=== PATIENT | female | born 1990 | race Caucasian/White ===

== ENCOUNTER 2024-07-08 11:47 | Emergency (ER) | payer SELFPAY ==
--- OUTSIDE RECORDS SUMMARY | 2024-07-08 11:51 | XMS REPORT | Continuity of Care Document ---
Author Name Unknown Address [address] [place] [address] [facility] Address 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 Phone Pcp, Patient Does Not Have A Primary Care Physic vitaliy KEYANNA HEATON Attending Clinician Unavailable KEYANNA HEATON Attending Clinician Unavailable Keyanna Heaton MD Attending Clinician [phone] KATHRYN OCASIO Attending Clinician Unavailable KATHRYN OCASIO Attending Clinician Unavailable Kathryn Ocasio DO Attending Clinician [phone] GALDINO FRANZ Attending Clinician Unavailable GALDINO FRANZ Attending Clinician Unavailable JOHNNY HAYNES Attending Clinician Unav ailable JOHNNY HAYNES Attending Clinician Unav ailable Johnny Haynes MD Attending Clinician + Sangeeta العلي MD Attending Clinician SANGEETA العلي Attending Clinician Gaby vailable Galdino Estevez Attending Clinician [phone] Melvin SANTOS, Anish Attending Clinician [phone] AIXA SAWYER Attending Clinician Unavailable AIXA SAWYER Attending Clinician Unavailable Aixa Sauceda Attending Clinician [phone] KATHRYN OCASIO Admitting Clinician Unavailable JOHNNY HAYNES Admitting Clinician Unav ailable SANGEETA العلي Admitting Clinician Gaby KEYANNA Gonzales Admitting Clinician Unavailable Payers Payer Name Policy Type Policy Number Effective Date Expirati on Date Source [id number]24 00:00:00 [facility] [id number] 2024 00:00:00 2024 00:00:00 Allergies, Adverse Reactions, Alerts Allergy Name Allergy Type Status Severity Reaction(s) Onset Date Inactive Date Treating Clinician Comments Source SHELLFIS H DERIVED DRUG INGREDI Active Anaphylaxis 04-07 00:00: 00 [facility] Shellfis h Derived Propensi ty to adverse reaction s Active Anaphylaxis 04-07 00:00: 00 [facility] IODINE DRUG INGREDI Active Anaphylaxis 2023-03 00:00: 00 [facility] Iodine Propensi ty to adverse reaction s Active Anaphylaxis 2023-03 00:00: 00 [facility] NO KNOWN ALLERGIE S Drug Class Active [facility] Social History Social Habit Start Date Stop Date Quantity Comments Source [facility] Sex assigned at 1990 00:00:00 1990 00:00:00 [facility] Smoking Status Start Date Stop Date Source Tobacco smoking consumption unknown [facility] Medications Ordered Medication Name Filled Medication Name Start Date Stop Date Current Medication? Ordering Clinician Indication Dosage Frequency Signature (SIG) Comments Components Source traMADoL (ULTRAM) tablet 50 mg 07-07 11:15: 00 07-07 10:31 :00 No 50mg 50 mg, Oral, ONCE NOW, 1 dose, On Fri07/07/24 at 0615, Routine [facility] naproxen sodium 550 mg tablet 07-07 00:00: 00 Yes [id number] 550mg Take 1 tablet by mouth in the morning and 1 tablet in the evening. Take with meals. [facility] ondansetron (ZOFRAN (PF)) injection 4 mg 06-13 03:00: 00 06-13 02:15 :00 No 4mg 4 mg, Slow IV Push, ONCE, 1 dose, On 06/12/24 at 2200, 2 mL [facility] pantoprazol e (PROTONIX) 80 mg in NaCl 0.9% (NS) 20 mL syringe 06-13 02:45: 00 06-13 02:18 :00 No 80mg 80 mg, Slow IV Push, Administer over 2 Minutes, ONCE, 1 dose, On 06/12/24 at 2145, Routine [facility] NaCl 0.9% (NS) bolus infusion 1,000 mL 06-13 02:00: 00 06-13 03:59 :00 No 1000mL at 999 mL/hr, 1,000 mL, IV Infusion, ONCE, 1 dose, On 06/12/24 at 2100, STAT [facility] morpHINE (4 mg/mL) injection 4 mg 06-13 01:55: 33 Yes 4mg 4 mg, Slow IV Push, Q4HPRN, Starting on 06/12/24 at 2055, Until Discontinu ed, Routine, Pain (scale 7-10) [facility] sucralfate 1 gram tablet 06-12 00:00: 00 Yes [id number] 1g Take 1 tablet by mouth before meals and at bedtime. [facility] pantoprazol e 40 mg EC tablet 06-12 00:00: 00 Yes [id number] 40mg Take 1 tablet by mouth in the morning. [facility] cephALEXin 500 mg capsule 06-12 00:00: 00 06-18 04:59 :00 Yes [id number] 500mg Take 1 capsule by mouth 4 (four) times daily for 5 days. [facility] ibuprofen 600 mg tablet 309 00:00: 00 Yes [id number] 600mg Take 1 tablet by mouth every 8 (eight) hours as needed for Pain (scale 4-6). [facility] ipratropium -albuteroL (DUONEB) 0.5 mg-3 mg(2.5 mg base)/3 mL nebulizer solution 3 mL 05-04 14:00: 00 Yes 3mL 3 mL, Inhalation , QID, First dose on Fri05/04/24 at 0800, Until Discontinu ed, Routine [facility] methylpredn isolone sod succ (SOLU-MEDRO L) injection 125 mg 05-04 11:30: 00 05-04 10:43 :00 No 125mg 125 mg, Intramuscu lar, ONCE, 1 dose, On Fri05/04/24 at 0530, 2 mL [facility] albuterol 90 mcg/actuati on inhaler 05-04 00:00: 00 Yes [id number] 2{puff} Inhale 2 Puffs every 4 (four) hours as needed for Wheezing or Shortness of Breath. [facility] benzonatate 100 mg capsule 05-04 00:00: 00 Yes [id number] 100mg Take 1 capsule by mouth 3 (three) times daily as needed for Cough. [facility] ipratropium (ATROVENT) 0.02 % nebulizer solution 0.5 mg 04-23 06:15: 00 04-23 05:29 :00 No .5mg 0.5 mg, Inhalation , ONCE, 1 dose, On Fri04/23/24 at 0015, [facility] albuterol (PROVENTIL) 2.5 mg /3 mL (0.083 %) nebulizer solution 2.5 mg 04-23 05:30: 00 04-23 05:29 :00 No 2.5mg 2.5 mg, Inhalation , ONCE, 1 dose, On Fri04/22/24 at 2330, [facility] ipratropium (ATROVENT) 0.02 % nebulizer solution 0.5 mg 04-23 05:30: 00 04-23 05:28 :00 No .5mg 0.5 mg, Inhalation , ONCE, 1 dose, On Fri04/22/24 at 2330, MARILY [facility] methylpredn isolone sod succ (SOLU-MEDRO L) injection 125 mg 04-23 05:30: 00 04-23 05:26 :00 No 125mg 125 mg, Intramuscu lar, Q6H, 1 dose, First dose on Fri04/22/24 at 2330, MARILY [facility] albuterol 90 mcg/actuati on inhaler 04-22 00:00: 00 Yes [id number] 2{puff} Inhale 2 Puffs every 4 (four) hours as needed for Wheezing or Shortness of Breath. [facility] Nebulizer & Compressor For Neb Fadumo 04-22 00:00: 00 Yes [id number] Use as directed [facility] albuterol 2.5 mg /3 mL (0.083 %) nebulizer solution 04-22 00:00: 00 Yes [id number] 2.5mg Inhale 3 mL every 4 (four) hours. May also nebulize one extra every 6 hours. [facility] azithromyci n (ZITHROMAX) 500 mg tablet 04-22 00:00: 00 04-28 05:59 :00 Yes [id number] 500mg Take 1 tablet by mouth in the morning for 5 days. [facility] predniSONE 20 mg tablet 04-22 00:00: 00 04-28 05:59 :00 Yes [id number] 60mg Take 3 tablets by mouth every morning for 5 days. [facility] ipratropium -albuteroL (DUONEB) 0.5 mg-3 mg(2.5 mg base)/3 mL nebulizer solution 3 mL 04-20 06:15: 00 04-20 05:49 :00 No 3mL 3 mL, Inhalation , ONCE, 1 dose, On Fri04/20/24 at 0015, Routine [facility] ibuprofen (MOTRIN) tablet 800 mg 04-20 05:30: 00 04-20 05:49 :00 No 800mg 800 mg, Oral, ONCE, 1 dose, On Fri04/19/24 at 2330, MARILY [facility] albuterol 90 mcg/actuati on inhaler 04-20 00:00: 00 Yes [id number] 2{puff} Inhale 2 Puffs every 4 (four) hours as needed for Wheezing, Shortness of Breath or Bronchospa sm. [facility] cefdinir 300 mg capsule 04-11 00:00: 00 04-22 05:59 :00 Yes [id number] 300mg Take 1 capsule by mouth every 12 (twelve) hours for 10 days. [facility] HYDROcodone -acetaminop hen (NORCO) 10-325 mg tablet 1 tablet 2023-03 06:30: 00 02-17 05:30 :00 No 1{tbl} 1 tablet, Oral, ONCE NOW, 1 dose, On Fri02/18/24 at 0030, Routine [facility] dexamethaso ne sod phos PF injection 10 mg 2023-03 05:30: 00 02-17 05:30 :00 No 10mg 10 mg, Intramuscu lar, ONCE, 1 dose, On Fri02/17/24 at 2330, 1 mL [facility] predniSONE 20 mg tablet 2023-03 00:00: 00 Yes [id number] Take One tablet Orally Daily [facility] traMADoL (ULTRAM) 50 mg tablet 2023-03 00:00: 00 Yes [id number] 50mg Take 1 tablet by mouth every 6 (six) hours as needed for Pain (scale 7-10). Indication s: acute pain [facility] methocarbam oL 750 mg tablet 2023-03 00:00: 00 Yes [id number] 750mg Take 1 tablet by mouth every 6 (six) hours as needed for Pain (scale 7-10) (MUSCLE SPASM). [facility] Vital Signs Vital Name Observation Time Observation Value Comments Dom watts Systolic blood pressure 2024-07-07 10:31:00 132 mm[Hg] [facility] Diastolic blood pressure 2024-07-07 10:31:00 74 mm[Hg] [facility] Heart rate 2024-07-07 10:31:00 83 /min [facility] Body temperature 2024-07-07 10:31:00 36.72 Crystal [facility] Respiratory rate 2024-07-07 10:31:00 18 /min [facility] Oxygen saturation in Arterial blood by Pulse oximetry 2024-07-07 10:31:00 96 /min [facility] Body height 2024-07-07 08:50:00 160 cm [facility] Body weight 2024-07-07 08:50:00 127.007 kg [facility] BMI 2024-07-07 08:50:00 49.60 kg/m2 [facility] Systolic blood pressure 2024-06-13 03:45:00 144 mm[Hg] [facility] Diastolic blood pressure 2024-06-13 03:45:00 67 mm[Hg] [facility] Heart rate 2024-06-13 03:45:00 67 /min [facility] Body temperature 2024-06-13 03:45:00 37 Crystal [facility] Respiratory rate 2024-06-13 03:45:00 21 /min [facility] Oxygen saturation in Arterial blood by Pulse oximetry 2024-06-13 03:45:00 98 /min [facility] Body height 2024-06-13 01:48:00 157.5 cm [facility] Body weight 2024-06-13 01:48:00 128.685 kg [facility] BMI 2024-06-13 01:48:00 51.89 kg/m2 [facility] Systolic blood pressure 2024-05-04 12:00:00 121 mm[Hg] [facility] Diastolic blood pressure 2024-05-04 12:00:00 74 mm[Hg] [facility] Heart rate 2024-05-04 12:00:00 85 /min [facility] Body temperature 2024-05-04 12:00:00 36.83 Crystal [facility] Respiratory rate 2024-05-04 12:00:00 18 /min [facility] Oxygen saturation in Arterial blood by Pulse oximetry 2024-05-04 12:00:00 93 /min [facility] Body height 2024-05-04 10:26:00 157.5 cm [facility] Body weight 2024-05-04 10:26:00 117.482 kg [facility] BMI 2024-05-04 10:26:00 47.37 kg/m2 [facility] Systolic blood pressure 2024-04-23 06:00:00 132 mm[Hg] [facility] Diastolic blood pressure 2024-04-23 06:00:00 78 mm[Hg] [facility] Heart rate 2024-04-23 06:00:00 95 /min [facility] Body temperature 2024-04-23 06:00:00 36.89 Crystal [facility] Respiratory rate 2024-04-23 06:00:00 20 /min [facility] Oxygen saturation in Arterial blood by Pulse oximetry 2024-04-23 06:00:00 97 /min [facility] Body height 2024-04-23 04:35:00 157.5 cm [facility] Body weight 2024-04-23 04:35:00 119.75 kg [facility] BMI 2024-04-23 04:35:00 48.29 kg/m2 [facility] Systolic blood pressure 2024-04-20 06:30:00 112 mm[Hg] [facility] Diastolic blood pressure 2024-04-20 06:30:00 58 mm[Hg] [facility] Heart rate 2024-04-20 06:30:00 98 /min [facility] Res[facility] rate 2024-04-20 06:30:00 16 /min [facility] Oxygen saturation in Arterial blood by Pulse oximetry 2024-04-20 06:30:00 97 /min [facility] Body temperature 2024-04-20 04:59:00 36.78 Crystal [facility] Body height 2024-04-20 04:59:00 157.5 cm [facility] Body weight 2024-04-20 04:59:00 117.935 kg [facility] BMI 2024-04-20 04:59:00 47.55 kg/m2 [facility] Systolic blood pressure 2024-04-11 10:23:00 127 mm[Hg] [facility] Diastolic blood pressure 2024-04-11 10:23:00 88 mm[Hg] [facility] Heart rate 2024-04-11 10:23:00 89 /min [facility] Body temperature 2024-04-11 10:23:00 36.83 Crystal [facility] Respiratory rate 2024-04-11 10:23:00 18 /min [facility] Oxygen saturation in Arterial blood by Pulse oximetry 2024-04-11 10:23:00 98 /min [facility] Body height 2024-04-11 07:28:00 162.6 cm [facility] Body weight 2024-04-11 07:28:00 120.022 kg [facility] BMI 2024-04-11 07:28:00 45.42 kg/m2 [facility] Systolic blood pressure 2024-04-07 22:48:00 148 mm[Hg] [facility] Diastolic blood pressure 2024-04-07 22:48:00 97 mm[Hg] [facility] Heart rate 2024-04-07 22:48:00 96 /min [facility] Body temperature 2024-04-07 22:48:00 36.89 Crystal [facility] Respiratory rate 2024-04-07 22:48:00 18 /min [facility] Body height 2024-04-07 22:48:00 160 cm [facility] Body weight 2024-04-07 22:48:00 117.935 kg [facility] BMI 2024-04-07 22:48:00 46.06 kg/m2 [facility] Oxygen saturation in Arterial blood by Pulse oximetry 2024-04-07 22:48:00 99 /min [facility] Systolic blood pressure 2024-02-18 05:30:00 117 mm[Hg] [facility] Diastolic blood pressure 2024-02-18 05:30:00 64 mm[Hg] [place] [facility] Heart rate 2024-02-18 05:30:00 80 /min [facility] Body temperature 2024-02-18 05:30:00 36.5 Crystal [facility] Respiratory rate 2024-02-18 05:30:00 15 /min [facility] Oxygen saturation in Arterial blood by Pulse oximetry 2024-02-18 05:30:00 98 /min [place] [facility] Body height 2024-02-18 02:25:00 157.5 cm [facility] Body weight 2024-02-18 02:25:00 113.399 kg [facility] BMI 2024-02-18 02:25:00 45.73 kg/m2 [facility] Procedures Procedure Date / Time Performed Performing Clinicia n Source POCT TEST 2024-07-07 09:57:00 Keyanna Heaton [facility] CT ABDOMEN PELVIS WO CONTRAST 2024-06-13 03:03:27 Singer [facility] POCT TEST 2024-06-13 02:18:00 Yoni Ocasio [facility] LIPASE 2024-06-13 02:14:00 [facility] COMP. METABOLIC PANEL ([id number]) 2024-06-13 02:14:00 Singer [facility] CBC WITH DIFF 2024-06-13 02:14:00 Kathryn Ocasio [facility] URINALYSIS 2024-06-13 02:14:00 [facility] INFLUENZA A/B RSV COVID NAAT 2024-05-04 10:42:00 Johnny Haynes [facility] XR CHEST 1 VW 2024-04-23 04:48:00 Patito العلي [facility] INFLUENZA A/B RSV COVID NAAT 2024-04-23 04:41:00 Sangeeta العلي [facility] RAPID STREP SCREEN FOR GROUP A 2024-04-20 05:04:00 Galdino Franz [facility] INFLUENZA A/B RSV COVID NAAT 2024-04-20 05:04:00 Galdino Franz [facility] COMP. METABOLIC PANEL (02062) 2024-04-11 08:21:00 Johnny Haynes [facility] CBC WITH DIFF 2024-04-11 08:21:00 Johnny Haynes [facility] URINALYSIS 2024-04-11 07:35:00 Johnny Haynes [facility] POCT TEST 2024-04-11 07:35:00 Johnny Corea [facility] POCT TEST 2024-02-18 04:47:00 Keyanna Heaton [facility] Encounters Start Date/Time End Date/Time Encounter Type Admission Type Attending [facility] Facility Care Department Encounter ID Source 2024-07-07 03:54:00 2024-07-07 05:36:00 Emergency X KEYANNA HEATON WAKILI [facility] ERT [id number] [facility] 2024-07-07 03:54:00 2024-07-07 05:36:00 Emergency Keyanna Heaton [facility] 1..840.114 350.1.13.10 4.2.7.2.686 [id number] [facility] 2024-06-12 20:50:00 2024-06-12 23:03:00 Emergency KATHRYN DEL CID PHILLIP [facility] ERT [id number] [facility] 2024-06-12 20:50:00 2024-06-12 23:03:00 Emergency Kathryn Ocasio [facility] 1..840.114 350.1.13.10 4.2.7.2.686 [id number] [facility] 2024-05-09 22:47:00 2024-05-10 01:10:00 Emergency X GALDINO FRANZ SH[place] [facility] ERT [id number] [facility] 2024-05-04 04:18:00 2024-05-04 06:30:00 Emergency X JOHNNY HAYNES ERIN [facility] ERT [id number] [facility] 2024-05-04 04:18:00 2024-05-04 06:30:00 Emergency Johnny Haynes [facility] [id number] 350.1.13.10 4.2.7.2.686 [id number] [facility] 2024-04-22 22:42:00 2024-04-23 00:06:00 Emergency Sangeeta العلي [facility] [id number] 350.1.13.10 4.2.7.2.686 [id number] [facility] 2024-04-22 22:42:00 2024-04-23 00:06:00 Emergency X SANGEETA العلي [facility] ERT [id number] [facility] 2024-04-19 23:01:00 2024-04-20 00:34:00 Emergency X GALDINO FRANZ [place] [facility] ERT [id number] [facility] 2024-04-19 23:01:00 2024-04-20 00:34:00 Emergency Galdino Franz [facility] [id number] 350.1.13.10 4.2.7.2.686 [id number] [facility] 2024-04-11 00:00:00 2024-04-11 14:08:40 Case Management Anish Charles [facility] 1.2.840.114 350.1.13.10 4.2.7.2.686 [id number] [facility] 2024-04-11 01:33:00 2024-04-11 04:25:00 Emergency X JOHNNY HAYNES ERIN [facility] ERT [id number] [facility] 2024-04-11 01:33:00 2024-04-11 04:25:00 Emergency Johnny Haynes [facility] 1.2.840.114 350.1.13.10 4.2.7.2.686 [id number] [facility] 2024-04-07 16:51:00 2024-04-07 17:37:00 Emergency X WESLEYAIXA ERICCA [facility] ERT [id number] [facility] 2024-04-07 16:51:00 2024-04-07 17:37:00 Emergency Aixa Sawyer [facility] 1.2.840.114 350.1.13.10 4.2.7.2.686 [id number] [facility] 2024-02-17 20:28:00 2024-02-18 00:05:00 Emergency X MICAHKEYANNA MORLEY WAKILI [facility] ERT [id number] [facility] 2024-02-17 20:28:00 2024-02-18 00:05:00 Emergency Keyanna Heaton [facility] [id number] 350.1.13.10 4.2.7.2.686 [id number] [facility] Results Test Description Test Time Test Comments Results Result Co mments Source [facility] [id number] 03:47:03* Test Item Value Reference Range Interpretation Comme nts WBC (test code = 6690-2) 13.02 4.30-11.10 H RBC (test code = 789-8) 4.62 3.93-5.25 HGB (test code = 718-7) 10.3 g/dL 11.6-15.0 L HCT (test code = 4544-3) 35.6 % 35.7-45.2 L MCV (test code = 787-2) 77.1 fL 80.6-95.5 L MCH (test code = 785-6) 22.3 pg 25.9-32.8 L MCHC (test code = 786-4) 28.9 g/dL 31.6-35.1 L RDW-SD (test code = 90397-4) 43.0 fL 39.0-49.9 RDW-CV (test code = 788-0) 15.5 % 12.0-15.5 PLT (test code = 777-3) 519 166-358 H MPV (test code = 42492-6) 8.4 fL 9.5-12.9 L NRBC/100 WBC (test code = 6547232846) 0.0 0.0-10.0 NRBC x10^3 (test code = 7884714892) See_Comment [Automated messa ge] The system which generated this result transmitted reference range: 10*3/?L. The reference range was not used to interpret this result as normal/abnormal. GRAN MAT (NEUT) % (test code = 770-8) 55.3 % IMM GRAN % (test code = 8924090713) 0.50 % LYMPH % (test code = 736-9) 32.9 % MONO % (test code = 5905-5) 7.5 % EOS % (test code = 713-8) 2.7 % BASO % (test code = 706-2) 1.1 % GRAN MAT x10^3(ANC) (test code = 4509813940) 7.21 10*3/uL 1.88-7.09 H IMM GRAN x10^3 (test code = 1621566396) 0.07 10*3/uL 0.00-0.06 H LYMPH x10^3 (test code = 731-0) 4.28 10*3/uL 1.32-3.29 H MONO x10^3 (test code = 742-7) 0.97 10*3/uL 0.33-0.92 H EOS x10^3 (test code = 711-2) 0.35 10*3/uL 0.03-0.39 BASO x10^3 (test code = 704-7) 0.14 10*3/uL 0.01-0.07 H Lab Interpretation (test code = 62084-3) Abnormal [facility] wo [id number] 03:29:40CT ABDOMEN PELVIS WO CONTRAST Indication: Epigastric pain Stone suspected ? Comparison: None. RL: Ordering Clinician: KATHRYN OCASIO Technique: Axial CT images of the abdomen and pelvis were performed withoutIV contrast. Sagittal and coronal reformats were created. Dose reductiontechniques were used (ALARA). Technical Quality: Adequate Discussion:Lines/Devices: None. Chest/Vessels: Right basilar pleural thickening with some calcificationover an area measuring 6.6 mm. ?No acute abnormalityof the aorta. Organs: No acute liver pathology. ?No gallbladder inflammation. ?Thepancreas is normal. ?No splenic masses. The adrenal glands are normal. : No renal stones or hydronephrosis. The bladder is normal. Anteverteduterus. GI: No inflammation of the colon. ?No small bowel obstruction. ?Normalappendix. Misc.: Subcentimeter lymph nodes are below size criteria. ?No free air orfree fluid. Skeleton: No acute osseous pathology.[facility] Met[facility] Panel ([id number]) 2024-06-13 03:03:59* Test Item Value Reference Range Interpretation Comme nts NA (test code = 1078543462) 137 mmol/L 135-145 K (test code = 8992060563) 4.2 mmol/L 3.5-5.0 CL (test code = 2861731660) 99 mmol/L 98-108 CO2 TOTAL (test code = 6183372726) 31 mmol/L 23-31 AGAP (test code = 1464886701) 7 2-16 BUN (test code = 9125193069) 13 mg/dL 7-23 GLUCOSE (test code = 2755615638) 97 mg/dL 70-110 CREATININE (test code = 2160-0) 0.71 mg/dL 0.50-1.04 TOTAL BILI (test code = 3365215255) 0.3 mg/dL 0.1-1.1 CALCIUM (test code = 7100057027) 9.2 mg/dL 8.6-10.6 T PROTEIN (test code = 8619836992) 8.1 g/dL 6.3-8.2 ALBUMIN (test code = 9021638298) 4.2 g/dL 3.5-5.0 ALK PHOS (test code = 9163691583) 104 U/L 34-122 ALTv (test code = 1742-6) 25 U/L 5-35 AST(SGOT) (test code = 1259411696) 23 U/L 13-40 eGFR (test code = 52252-0) 116.0 mL/min/1.73m2 CKD-EPI eGFR (20 21). Assuming creatinine has been stable day-to-day for at least three months, the eGFR indicates Category G1 (>= 90 mL/min/1.73 m2) [facility] 03:03:39* Test Item Value Reference Range Interpretation Comme nts LIPASE (test code = 0740368582) 75 U/L 0-220 Lab Interpretation (test cod e = 39289-9) Normal [facility] [id number] 02:18:00* Test Item Value Reference Range Interpretation Comme nts POCT PREG (test code = 1605) Negative On board controls acceptable with C Line (test code = 3574) Yes POCT PREG LOT # (test code = 3575) [id number] POCT PREG TEST DATE ( test code = 3576) 09/23/2025 Lab Interpretation (test cod e = 27922-5) Normal [facility] 1 [id number] 05:26:55Ordering physician: SANGEETA العلي Indication: Shortness of breath Comparison: None Technical quality: Adequate Findings: Single AP view of the chest. The cardiopericardial silhouette iswithin normal limits. There is mild thickening of the green of the centralairways without focal consolidation. The visualized bony thorax is intact.[facility] (69096) 2024-04-11 09:34:22* Test Item Value Reference Range Interpretation Comme nts NA (test code = 6300360416) 137 mmol/L 135-145 K (test code = 5168294305) 3.6 mmol/L 3.5-5.0 CL (test code = 4300743046) 104 mmol/L 98-108 CO2 TOTAL (test code = 1414458213) 30 mmol/L 23-31 AGAP (test code = 2674399964) 3 2-16 BUN (test code = 3374511697) 9 mg/dL 7-23 GLUCOSE (test code = 5679646068) 104 mg/dL 70-110 CREATININE (test code = 2160-0) 1.05 mg/dL 0.50-1.04 H TOTAL BILI (test code = 5353721101) 0.2 mg/dL 0.1-1.1 CALCIUM (test code = 0042971323) 9.3 mg/dL 8.6-10.6 T PROTEIN (test code = 5760205692) 7.6 g/dL 6.3-8.2 ALBUMIN (test code = 5451002926) 4.0 g/dL 3.5-5.0 ALK PHOS (test code = 1438405578) 95 U/L 34-122 ALTv (test code = 1742-6) 17 U/L 5-35 AST(SGOT) (test code = 4238379020) 17 U/L 13-40 eGFR (test code = 37221-5) 72.5 mL/min/1.73m2 CKD-EPI eGFR (2020). Assuming creatinine has been stable day-to-day for at least three months, the eGFR indicates Category G2 (60 - 89 mL/min/1.73 m2) Lab Interpretation (test code = 50133-1) Abnormal [facility] with [id number] 09:14:28* Test Item Value Reference Range Interpretation Comme nts WBC (test code = 6690-2) 18.83 4.30-11.10 H RBC (test code = 789-8) 4.09 3.93-5.25 HGB (test code = 718-7) 9.8 g/dL 11.6-15.0 L HCT (test code = 4544-3) 32.2 % 35.7-45.2 L MCV (test code = 787-2) 78.7 fL 80.6-95.5 L MCH (test code = 785-6) 24.0 pg 25.9-32.8 L MCHC (test code = 786-4) 30.4 g/dL 31.6-35.1 L RDW-SD (test code = 95438-7) 49.6 fL 39.0-49.9 RDW-CV (test code = 788-0) 17.5 % 12.0-15.5 H PLT (test code = 777-3) 544 166-358 H MPV (test code = 23140-9) 8.5 fL 9.5-12.9 L NRBC/100 WBC (test code = 1070022201) 0.0 0.0-10.0 NRBC x10^3 (test code = 5562348867) See_Comment [Automated message] The system which generated this result transmitted reference range: 10*3/?L. The reference range was not used to interpret this result as normal/abnormal. GRAN MAT (NEUT) % (test code = 770-8) 69.4 % IMM GRAN % (test code = 7582170810) 0.80 % LYMPH % (test code = 736-9) 21.9 % MONO % (test code = 5905-5) 5.2 % EOS % (test code = 713-8) 2.0 % BASO % (test code = 706-2) 0.7 % GRAN MAT x10^3(ANC) (test code = 1079501963) 13.08 10*3/uL 1.88-7.09 H IMM GRAN x10^3 (test code = 1406069410) 0.15 10*3/uL 0.00-0.06 H LYMPH x10^3 (test code = 731-0) 4.12 10*3/uL 1.32-3.29 H MONO x10^3 (test code = 742-7) 0.97 10*3/uL 0.33-0.92 H EOS x10^3 (test code = 711-2) 0.37 10*3/uL 0.03-0.39 BASO x10^3 (test code = 704-7) 0.14 10*3/uL 0.01-0.07 H Lab Interpretation (test code = 90475-5) Abnormal [facility] [id number] 07:35:00* Test Item Value Reference Range Interpretation Comme nts POCT PREG (test code = 1605) Negative On board controls acceptable with C Line (test code = 3574) Yes POCT PREG LOT # (test code = 3575) [id number] POCT PREG TEST DATE ( test code = 3576) 05/03/2025 Lab Interpretation (test cod e = 49960-1) Normal [facility] [id number] 04:47:00* Test Item Value Reference Range Interpretation Comme nts POCT PREG (test code = 1605) Negative On board controls acceptable with C Line (test code = 3574) Yes POCT PREG LOT # (test code = 3575) [id number] POCT PREG TEST DATE ( test code = 3576) 02/08/2025 Lab Interpretation (test cod e = 31679-0) Normal [facility] Notes Date/Time Note Provider Source 2024-07-07 05:35:01 Pt given printed and verbal discharge instructions regarding foot sprain. Prescriptions provided x1 Pt verbalized understanding of instructions, pt awake alert oriented, resp reg unlabored, skin w/d, color appropriate for race, moves all ext well,pt encouraged to follow up with pcp and or specialist. Advised to seek medical attention for new/prolonged/worsening of symptoms. No adverse reaction to meds given in ER noted upon discharge Awake, alert oriented, resp reg unlabored, skin w/d, pt leaving amb with steady gait, in no apparent distress, Mayi Montano RN [facility] 2024-07-07 03:49:12 Pt arrived ambulatory to triage complaining of left foot pain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 Psychiatric/Behavioral: Negative. All other systems reviewed and are negative. Endocrine: Endocrine negative Physical Exam: ED Triage Vitals [02/17/242024] Weight 113.4 kg (250 lb) Actual or estimated Actual Height 1.575 m (5' 2") BP (!) 142/91 Pulse 96 Resp 18 Temp 37.1 ?C (98.8 ?F) Temp source Oral SpO2 100 % Measured on Room air Physical Exam Vitals and nursing note reviewed. Constitutional: General: She is not in acute distress. Appearance: Normal appearance. She is well-developed. She is obese. She is not ill-appearing, toxic-appearing or diaphoretic. HENT: Head: Normocephalic and atraumatic. Nose: Nose normal. No congestion or rhinorrhea. Mouth/Throat: Mouth: Mucous membranes are moist. Pharynx: Oropharynx is clear. No oropharyngeal exudate or posterior oropharyngeal erythema. Eyes: General: No scleral icterus. Right eye: No discharge. Left eye: No discharge. Extraocular Movements: Extraocular movements intact. Conjunctiva/sclera: Conjunctivae normal. Pupils: Pupils are equal, round, and reactive to light. Neck: Thyroid: No thyromegaly. Cardiovascular: Rate and Rhythm: Normal rate and regular rhythm. Pulses: Normal pulses. Heart sounds: Normal heart sounds. No murmur heard. Pulmonary: Effort: Pulmonary effort is normal. No respiratory distress. Breath sounds: Normal breath sounds. No stridor. No wheezing, rhonchi or rales. Chest: Chest wall: No tenderness. Abdominal: General: Bowel sounds are normal. There is no distension. Palpations: Abdomen is soft. Tenderness: There is no abdominal tenderness. There is no right CVA tenderness, left CVA tenderness, guarding or rebound. Musculoskeletal: General: No swelling, tenderness, deformity or signs of injury. Normal range of motion. Cervical back: Normal range of motion and neck supple. No rigidity or tenderness. Right lower leg: No edema. Left lower leg: No edema. Lymphadenopathy: Cervical: No cervical adenopathy. Skin: General: Skin is warm and dry. Capillary Refill: Capillary refill takes less than 2 seconds. Coloration: Skin is not jaundiced or pale. Findings: No bruising, erythema, lesion or rash. Neurological: General: No focal deficit present. Mental Status: She is alert and oriented to person, place, and time. Cranial Nerves: No cranial nerve deficit. Motor: No weakness or abnormal muscle tone. Coordination: Coordination normal. Gait: Gait normal. Psychiatric: Mood and Affect: Mood normal. Behavior: Behavior normal. Thought Content: Thought content normal. Judgment: Judgment normal. Radiology: XR Shoulder 2+ vw left Preliminary Result EXAM: XR SHOULDER 2+ VW LEFT HISTORY: Left shoulder pain COMPARISON: None. FINDINGS: Radiographs of the left shoulder demonstrate no acute fracture or dislocation. The joint spaces are maintained. The visualized lung is clear with no pleural abnormality. IMPRESSION No obvious acute osseous abnormality. Preliminary Report Dictated by Resident: Narcisa Whyte Lab Results: Lab Results POCT TEST - Normal Result Value Ref Range POCT PREG Negative On board controls acceptable with C Line Yes POCT PREG LOT # [id number] POCT PREG TEST DATE 02/08/2025 Orders and Treatments: Orders Placed This Encounter Procedures XR Shoulder 2+ vw left POCT TEST Orders Placed This Encounter Medications HYDROcodone-acetaminophen (NORCO) 10-325 mg tablet 1 tablet dexamethasone sod phos PF injection 10 mg predniSONE 20 mg tablet traMADoL (ULTRAM) 50 mg tablet methocarbamoL 750 mg tablet First Provider Eval: ED Events None ED COURSE Diagnosis/Impression as of 02/17/242356 Acute pain of left shoulder Strain of left shoulder, initial encounter Procedures: Procedures MDM: Medical Decision Making Boris Lorenzo is a 33 year old female who presents to the ED with left shoulder pain Problems Addressed: Acute pain of left shoulder: acute illness or injury Strain of left shoulder, initial encounter: acute illness or injury Amount and/or Complexity of Data Reviewed Labs: ordered. Radiology: ordered and independent interpretation performed. Decision-making details documented in ED Course. Risk OTC drugs. Prescription drug management. Flowsheet Documentation: Scoring Tools: No data recorded Disposition/Condition: ED Disposition ED Disposition Discharge Condition Stable Comment -- Discharge Medications: Patient's Medications START taking these medications METHOCARBAMOL 750 MG TABLET Take 1 tablet by mouth every 6 (six) hours as needed for Pain (scale 7-10) (MUSCLE SPASM). PREDNISONE 20 MG TABLET Take One tablet Orally Daily TRAMADOL (ULTRAM) 50 MG TABLET Take 1 tablet by mouth every 6 (six) hours as needed for Pain (scale 7-10). Indications: acute pain CONTINUE taking these medications which have NOT CHANGED No medications on file START taking Modified Medications as Prescribed No medications on file STOP taking these medications No medications on file Follow-up: Electronically signed by: Keyanna Heaton MD 02/17/242356 [facility]
--- NOTE | 2024-07-08 13:20 | ER ---
Nurse's Notes [facility] Name: Jan Lorenzo Age: 34 yrs Sex: Female : 1990 Arrival Date: 07/08/2024 Time: 11:47 Bed 11 Private MD: Diagnosis: Plantar fasciitis Presentation: 07/08 12:10 Chief complaint: Patient states: Friday woke up with left foot pain, there is as knot iw on bottom of foot that is painful to walk on. Coronavirus screen: At this time, the client does not indicate any symptoms associated with coronavirus-19. Ebola Screen: No symptoms or risks identified at this time. Initial Sepsis Screen: Does the patient meet any 2 criteria? No. Patient's initial sepsis screen is negative. Does the patient have a suspected source of infection? No. Patient's initial sepsis screen is negative. Risk Assessment: Do you want to hurt yourself or someone else? Patient reports no desire to harm self or others. Onset of symptoms was July 06, 2024. 12:10 Method Of Arrival: Wheelchair iw 12:10 Acuity: SALLY 4 iw Triage Assessment: 13:30 General: Appears uncomfortable, Behavior is calm, cooperative, appropriate for age. 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 - Infectious Disease History:: Denies. - Social history:: Smoking status: Reported history of juuling and/or vaping. Screenin:30 [facility] ED Fall Risk Assessment (Adult) History of falling in the last 3 months, cm10 including since admission No falls in past 3 months (0 pts) Confusion or Disorientation No (0 pts) Intoxicated or Sedated No (0 pts) Impaired Gait No (0 pts) Mobility Assist Device Used No (0 pt) Altered Elimination No (0 pt) Score/Fall Risk Level 0 - 2 = Low Risk Maintained a safe environment, Hourly rounding (assess needs \T\ fall precautionary measures) done. Abuse screen: Denies threats or abuse. Nutritional screening: No deficits noted. Tuberculosis screening: No symptoms or risk factors identified. Assessment: 13:30 General: Appears uncomfortable, Behavior is calm, cooperative, appropriate for age. cm10 Pain: Complains of pain in left foot. Musculoskeletal: Circulation, motion, and sensation intact. Capillary refill < 3 seconds, in left toes. Reports pain in left foot. Vital Signs: 12:10 BP 130 / 108; Pulse 92; Resp 19; Temp 98.1; Pulse Ox 100% on R/A; Weight 127.01 kg; iw Height 5 ft. 3 in. ; Pain 8/10; 13:30 BP 134 / 89; Pulse 87; Resp 18; Pulse Ox 100% ; cm10 12:10 Body Mass Index 49.60 (127.01 kg, 160.02 cm) iw 12:10 Pain Scale: Adult ED Course: 11:50 Patient arrived in ED. al6 12:09 Dolores Dover MD is Attending Physician. sp3 12:12 Triage completed. iw 12:39 Foot Left 3 View XRAY In Process Unspecified. EDMS 13:30 Arm band placed on Patient placed on a stretcher. cm10 13:30 Bed in low position. Provided Education on: take prescribed medications as directed. cm10 13:30 No provider procedures requiring assistance completed. Patient did not have IV access cm10 during this emergency room visit. Administered Medications: No medications were administered Medication: 13:30 VIS not applicable for this client. cm10 Outcome: 13:20 Discharge ordered by . sp3 13:30 Patient left the ED. cm10 13:30 Discharged to home ambulatory, cm10 13:30 Condition: stable 13:30 Discharge instructions given to patient, Instructed on discharge instructions, follow up and referral plans. medication usage, Demonstrated understanding of instructions, follow-up care, medications, Prescriptions given X 1, Signatures: Dispatcher [employer] EDMS Katy Yoon RN RN Dolores Dover MD MD sp3 Jessica Corral RN RN cm10 Naa Garcia al6 Corrections: (The following items were deleted from the chart) 12:13 12:10 BP 130 / 108; Pulse 110bpm; Resp 19bpm; Pulse Ox 100% RA; Temp 98.1F; 127.01 kg; iw Height 5 ft. 3 in.; BMI: 49.6; Pain 8/10, Adult; iw
--- NOTE | 2024-07-08 13:20 | EDPHYS ---
Physician Documentation [facility] Name: Jan Lorenzo Age: 34 yrs Sex: Female : 1990 Arrival Date: 07/08/2024 Time: 11:47 Bed 11 Private MD: ED Physician Dolores Dover HPI: 07/08 13:16 This 34 yrs old Female presents to ER via Wheelchair with complaints of Foot Pain. sp3 13:16 34-year-old female with history of asthma, obesity now presents to the ED with left sp3 anterior foot pain at the distal end of the arch for the last several days. Pain has been progressively getting worse. 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 She does stand on a mat which she states helps but is still not fully working. She denies any direct trauma, fever, redness, bleeding or any other symptoms. ROS otherwise negative.. 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 - Infectious Disease History:: Denies. - Social history:: Smoking status: Reported history of juuling and/or vaping. ROS: 13:17 Constitutional: Negative for fever, chills, and weight loss, Eyes: Negative for injury, sp3 pain, redness, and discharge, Neck: Negative for injury, pain, and swelling, Cardiovascular: Negative for chest pain, palpitations, and edema, Respiratory: Negative for shortness of breath, cough, wheezing, and pleuritic chest pain, Abdomen/GI: Negative for abdominal pain, nausea, vomiting, diarrhea, and constipation, Back: Negative for injury and pain, Skin: Negative for injury, rash, and discoloration, Neuro: Negative for headache, weakness, numbness, tingling, and seizure, Psych: Negative for depression, anxiety, suicide ideation, homicidal ideation, and hallucinations, Allergy/Immunology: Negative for hives, rash, and allergies, Endocrine: Negative for neck swelling, polydipsia, polyuria, polyphagia, and marked weight changes, 13:17 All other systems are negative, Exam: 13:18 Constitutional: This is a well developed, well nourished patient who is awake, alert, sp3 and in no acute distress. Head/Face: Normocephalic, atraumatic. Eyes: Pupils equal round and reactive to light, extra-ocular motions intact. Lids and lashes normal. Conjunctiva and sclera are non-icteric and not injected. Cornea within normal limits. Periorbital areas with no swelling, redness, or edema. Chest/axilla: Normal chest wall appearance and motion. Nontender with no deformity. No lesions are appreciated. Cardiovascular: Regular rate and rhythm with a normal S1 and S2. No gallops, murmurs, or rubs. Normal PMI, no JVD. No pulse deficits. Respiratory: Lungs have equal breath sounds bilaterally, clear to auscultation and percussion. No rales, rhonchi or wheezes noted. No increased work of breathing, no retractions or nasal flaring. Skin: Warm, dry with normal turgor. Normal color with no rashes, no lesions, and no evidence of cellulitis. Neuro: Awake and alert, GCS 15, oriented to person, place, time, and situation. Cranial nerves II-XII grossly intact. Motor strength 5/5 in all extremities. Sensory grossly intact. Cerebellar exam normal. Normal gait. 13:18 Musculoskeletal/extremity: Patient has pain on her plantar fascial to distal end of the arch. No redness, swelling, fluctuance or any other findings on exam.. Vital Signs: 12:10 BP 130 / 108; Pulse 92; Resp 19; Temp 98.1; Pulse Ox 100% on R/A; Weight 127.01 kg; iw Height 5 ft. 3 in. ; Pain 8/10; 13:30 BP 134 / 89; Pulse 87; Resp 18; Pulse Ox 100% ; cm10 12:10 Body Mass Index 49.60 (127.01 kg, 160.02 cm) iw 12:10 Pain Scale: Adult iw MDM: 12:14 Medical Screening Exam initiated sp3 13:19 Data reviewed: vital signs, nurses notes, radiologic studies. ED course: 34-year-old sp3 female with left-sided plantar fasciitis versus tendinitis versus other inflammatory process. Clinically I do not believe patient has infection, foreign body or any other process. Will discharge safely home on reassurance, instructions for better arch support and anti-inflammatory p.o. Follow-up with podiatry and orthopedics as needed.. 07/08 12:14 Order name: Foot Left 3 View XRAY sp3 Administered Medications: No medications were administered Disposition Summary: 07/08/24 13:20 Discharge Ordered Notes: Location: Home sp3 Condition: Stable sp3 Diagnosis - Plantar fasciitis sp3 Followup: sp3 - With: Private Physician - When: Upon discharge from the Emergency Department - Reason: Continuance of care Discharge Instructions: - Discharge Summary Sheet sp3 - Plantar Fasciitis sp3 - Plantar Fasciitis Rehab sp3 Forms: - Medication Reconciliation Form sp3 - Antibiotic Education sp3 - Prescription Opioid Use sp3 - Patient Portal Instructions sp3 - Leadership Thank You Letter sp3 Prescriptions: - Diclofenac Sodium 75 mg Oral Tablet Sustained Release - take 1 tablet ORAL route 2 times per day; 30 tablet; Refills: 0, Product sp3 Selection Permitted Signatures: Dispatcher [employer] Katy Michelle RN RN Dolores Beebe MD MD sp3 Corrections: (The following items were deleted from the chart) 12:15 12:15 Foot Left 3 View+RAD.RAD.BRZ ordered. KJ UNDERWOOD
[2024-07-08 13:49] VITALS: BP 130/108; TEMP 98.1; O2SAT 100
--- NOTE | 2024-07-08 14:25 | RAD REPORT ---
EXAMINATION: XR Foot Left 3 View CLINICAL INDICATION: Female, 34 years old. [facility] No -1 and Bed Name: 1 TECHNIQUE: 3 view radiographs of the left foot were obtained. COMPARISON: No prior exam. FINDINGS: No evidence of fracture or dislocation. Normal alignment. No evidence of arthropathy or oth er focal bone lesion. BB marker along the plantar forefoot corresponds to a somewhat prominent first digit sesamoid bone. Enthesopathy noted at the Achilles tendon attachment. Soft tissues are unr emarkable. No soft tissue swelling. No significant degenerative changes. IMPRESSION: No acute or significant abnormalities. Palpable abnormality along the plantar foot could represent a prominent sesamoid bone.
== END 2024-07-08 13:30 | disposition home or self-care (01) ==
LOC: ER 11:47
DX: M72.2 Plantar fascial fibromatosis (principal)
CPT/HCPCS: 99283

== ENCOUNTER 2024-07-18 00:38 | Emergency (ER) | payer OTHER ==
--- OUTSIDE RECORDS SUMMARY | 2024-07-18 00:43 | XMS REPORT | Continuity of Care Document ---
Author Name Unknown Address [address] [facility] [address] [place] [address] Organization [facility] Address [address] [facility] [address] [place] [address] Care Team Providers Care Graduate Teaching Associate Name Role Phone PCP, PATIENT DOES NOT HAVE A Primary Care Physic vitaliy Unavailable KEYANNA HEATON Attending Clinician Unavailable KEYANNA HEATON Attending Clinician Unavailable Keyanna Heaton MD Attending Clinician [phone] KATHRYN OCASIO Attending Clinician Unavailable KATHRYN OCASIO Attending Clinician Unavailable Kathryn Ocasio DO Attending Clinician [phone] GALDINO FRANZ Attending Clinician Unavailable GALDINO FRANZ Attending Clinician Unavailable JOHNNY HAYNES Attending Clinician Unav ailable JOHNNY HAYNES Attending Clinician Unav ailable Johnny Haynes MD Attending Clinician + Sangeeta العلي MD Attending Clinician SANGEETA العلي Attending Clinician Gaby vailable Galdino Estevez Attending Clinician [phone] Anish Charles MD Attending Clinician [phone] AIXA SAWYER Attending Clinician Unavailable AIXA SAWYER Attending Clinician Unavailable Aixa Sauceda Attending Clinician [phone] KEYANNA HEATON Admitting Clinician Unavailable KATHRYN OCASIO Admitting Clinician Unavailable JOHNNY HAYNES Admitting Clinician SANGEETA Guaman Admitting Clinician Gaby rogers Payers Payer Name Policy Type Policy Number Effective Date Expirati on Date Source TANIA LAKHANI [id number] 2024 00:00:00 [facility] [place] [facility] [id number] 2024 00:00:00 2024 00:00:00 Allergies, Adverse Reactions, Alerts Allergy Name Allergy Type Status Severity Reaction(s) Onset Date Inactive Date Treating Clinician Comments Source SHELLFIS H DERIVED DRUG INGREDI Active Anaphylaxis 04-07 00:00: 00 [facility] Shellfis h Derived Propensi ty to adverse reaction s Active Anaphylaxis 04-07 00:00: 00 [facility] IODINE DRUG INGREDI Active Anaphylaxis 2023-03 00:00: 00 [facility] Iodine Propensi ty to adverse reaction s Active Anaphylaxis 2023-03 00:00: 00 [facility] NO KNOWN ALLERGIE S Drug Class Active [facility] Social History Social Habit Start Date Stop Date Quantity Comments Source [facility] Sex assigned at 1990 00:00:00 1990 00:00:00 [facility] Smoking Status Start Date Stop Date Source Tobacco smoking consumption unknown [facility] Medications Ordered Medication Name Filled Medication Name Start Date Stop Date Current Medication? Ordering Clinician Indication Dosage Frequency Signature (SIG) Comments Components Source traMADoL (ULTRAM) tablet 50 mg 07-07 11:15: 00 07-07 10:31 :00 No 50mg 50 mg, Oral, ONCE NOW, 1 dose, On Fri07/07/24 at 0615, Routine [facility] naproxen sodium 550 mg tablet 07-07 00:00: 00 Yes [id number] 550mg Take 1 tablet by mouth in the morning and 1 tablet in the evening. Take with meals. [facility] ondansetron (ZOFRAN (PF)) injection 4 mg 06-13 03:00: 00 06-13 02:15 :00 No 4mg 4 mg, Slow IV Push, ONCE, 1 dose, On 06/12/24 at 2200, 2 mL [facility] pantoprazol e (PROTONIX) 80 mg in NaCl 0.9% (NS) 20 mL syringe 06-13 02:45: 00 06-13 02:18 :00 No 80mg 80 mg, Slow IV Push, Administer over 2 Minutes, ONCE, 1 dose, On 06/12/24 at 2145, Routine [facility] NaCl 0.9% (NS) bolus infusion 1,000 mL 06-13 02:00: 00 06-13 03:59 :00 No 1000mL at 999 mL/hr, 1,000 mL, IV Infusion, ONCE, 1 dose, On 06/12/24 at 2100, STAT [facility] morpHINE (4 mg/mL) injection 4 mg 06-13 01:55: 33 Yes 4mg 4 mg, Slow IV Push, Q4HPRN, Starting on 06/12/24 at 2055, Until Discontinu ed, Routine, Pain (scale 7-10) [facility] sucralfate 1 gram tablet 06-12 00:00: 00 Yes [id number] 1g Take 1 tablet by mouth before meals and at bedtime. [facility] pantoprazol e 40 mg EC tablet 06-12 00:00: 00 Yes [id number] 40mg Take 1 tablet by mouth in the morning. [facility] cephALEXin 500 mg capsule 06-12 00:00: 00 06-18 04:59 :00 Yes [id number] 500mg Take 1 capsule by mouth 4 (four) times daily for 5 days. [facility] ibuprofen 600 mg tablet 09 00:00: 00 Yes [id number] 600mg Take 1 tablet by mouth every 8 (eight) hours as needed for Pain (scale 4-6). [facility] ipratropium -albuteroL (DUONEB) 0.5 mg-3 mg(2.5 mg base)/3 mL nebulizer solution 3 mL 05-04 14:00: 00 Yes 3mL 3 mL, Inhalation , QID, First dose on Fri05/04/24 at 0800, Until Discontinu ed, Routine [facility] methylpredn isolone sod succ (SOLU-MEDRO L) injection 125 mg 05-04 11:30: 00 05-04 10:43 :00 No 125mg 125 mg, Intramuscu lar, ONCE, 1 dose, On Fri05/04/24 at 0530, 2 mL [facility] albuterol 90 mcg/actuati on inhaler 05-04 00:00: 00 Yes [id number] 2{puff} Inhale 2 Puffs every 4 (four) hours as needed for Wheezing or Shortness of Breath. [facility] benzonatate 100 mg capsule 05-04 00:00: 00 Yes [id number] 100mg Take 1 capsule by mouth 3 (three) times daily as needed for Cough. [facility] ipratropium (ATROVENT) 0.02 % nebulizer solution 0.5 mg 04-23 06:15: 00 04-23 05:29 :00 No .5mg 0.5 mg, Inhalation , ONCE, 1 dose, On Fri04/23/24 at 0015, [facility] albuterol (PROVENTIL) 2.5 mg /3 mL (0.083 %) nebulizer solution 2.5 mg 04-23 05:30: 00 04-23 05:29 :00 No 2.5mg 2.5 mg, Inhalation , ONCE, 1 dose, On Fri04/22/24 at 2330, [facility] ipratropium (ATROVENT) 0.02 % nebulizer solution 0.5 mg 04-23 05:30: 00 04-23 05:28 :00 No .5mg 0.5 mg, Inhalation , ONCE, 1 dose, On Fri04/22/24 at 2330, [facility] methylpredn isolone sod succ (SOLU-MEDRO L) injection 125 mg 04-23 05:30: 00 04-23 05:26 :00 No 125mg 125 mg, Intramuscu lar, Q6H, 1 dose, First dose on Tyra 04/22/24 at 2330, MARILY [facility] albuterol 90 mcg/actuati on inhaler 04-22 00:00: 00 Yes [id number] 2{puff} Inhale 2 Puffs every 4 (four) hours as needed for Wheezing or Shortness of Breath. [facility] Nebulizer & Compressor For Neb Fadumo 04-22 00:00: 00 Yes [id number] Use as directed [facility] albuterol 2.5 mg /3 mL (0.083 %) nebulizer solution 04-22 00:00: 00 Yes [id number] 2.5mg Inhale 3 mL every 4 (four) hours. May also nebulize one extra every 6 hours. [facility] azithromyci n (ZITHROMAX) 500 mg tablet 04-22 00:00: 00 04-28 05:59 :00 Yes [id number] 500mg Take 1 tablet by mouth in the morning for 5 days. [facility] predniSONE 20 mg tablet 04-22 00:00: 00 04-28 05:59 :00 Yes [id number] 60mg Take 3 tablets by mouth every morning for 5 days. [facility] ipratropium -albuteroL (DUONEB) 0.5 mg-3 mg(2.5 mg base)/3 mL nebulizer solution 3 mL 04-20 06:15: 00 04-20 05:49 :00 No 3mL 3 mL, Inhalation , ONCE, 1 dose, On Fri04/20/24 at 0015, Routine [facility] ibuprofen (MOTRIN) tablet 800 mg 04-20 05:30: 00 04-20 05:49 :00 No 800mg 800 mg, Oral, ONCE, 1 dose, On Fri04/19/24 at 2330, MARILY [facility] albuterol 90 mcg/actuati on inhaler 04-20 00:00: 00 Yes [id number] 2{puff} Inhale 2 Puffs every 4 (four) hours as needed for Wheezing, Shortness of Breath or Bronchospa sm. [facility] cefdinir 300 mg capsule 04-11 00:00: 00 04-22 05:59 :00 No [id number] 300mg Take 1 capsule by mouth every 12 (twelve) hours for 10 days. [facility] HYDROcodone -acetaminop hen (NORCO) 10-325 mg tablet 1 tablet 2023-03 06:30: 00 02-17 05:30 :00 No 1{tbl} 1 tablet, Oral, ONCE NOW, 1 dose, On Fri02/18/24 at 0030, Routine [facility] dexamethaso ne sod phos PF injection 10 mg 2023-03 05:30: 00 02-17 05:30 :00 No 10mg 10 mg, Intramuscu lar, ONCE, 1 dose, On Fri02/17/24 at 2330, 1 mL [facility] predniSONE 20 mg tablet 2023-03 00:00: 00 Yes [id number] Take One tablet Orally Daily [facility] traMADoL (ULTRAM) 50 mg tablet 2023-03 00:00: 00 Yes [id number] 50mg Take 1 tablet by mouth every 6 (six) hours as needed for Pain (scale 7-10). Indication s: acute pain [facility] methocarbam oL 750 mg tablet 2023-03 00:00: 00 Yes [id number] 750mg Take 1 tablet by mouth every 6 (six) hours as needed for Pain (scale 7-10) (MUSCLE SPASM). [facility] Vital Signs Vital Name Observation Time Observation Value Comments S stefanie Systolic blood pressure 2024-07-07 10:31:00 132 mm[Hg] [facility] Diastolic blood pressure 2024-07-07 10:31:00 74 mm[Hg] [facility] Heart rate 2024-07-07 10:31:00 83 /min [facility] Body temperature 2024-07-07 10:31:00 36.72 [facility] Respiratory rate 2024-07-07 10:31:00 18 /min [facility] Oxygen saturation in Arterial blood by Pulse oximetry 2024-07-07 10:31:00 96 /min [facility] Body height 2024-07-07 08:50:00 160 cm [facility] Body weight 2024-07-07 08:50:00 127.007 kg [facility] BMI 2024-07-07 08:50:00 49.60 kg/m2 [facility] Systolic blood pressure 2024-06-13 03:45:00 144 mm[Hg] [facility] Diastolic blood pressure 2024-06-13 03:45:00 67 mm[Hg] [facility] Heart rate 2024-06-13 03:45:00 67 /min [facility] Body temperature 2024-06-13 03:45:00 37 [facility] Respiratory rate 2024-06-13 03:45:00 21 /min [facility] Oxygen saturation in Arterial blood by Pulse oximetry 2024-06-13 03:45:00 98 /min [facility] Body height 2024-06-13 01:48:00 157.5 cm [facility] Body weight 2024-06-13 01:48:00 128.685 kg [facility] BMI 2024-06-13 01:48:00 51.89 kg/m2 [facility] Systolic blood pressure 2024-05-04 12:00:00 121 mm[Hg] [facility] Diastolic blood pressure 2024-05-04 12:00:00 74 mm[Hg] [facility] Heart rate 2024-05-04 12:00:00 85 /min [facility] Body temperature 2024-05-04 12:00:00 36.83 [facility] Respiratory rate 2024-05-04 12:00:00 18 /min [facility] Oxygen saturation in Arterial blood by Pulse oximetry 2024-05-04 12:00:00 93 /min [facility] Body height 2024-05-04 10:26:00 157.5 cm [facility] Body weight 2024-05-04 10:26:00 117.482 kg [facility] BMI 2024-05-04 10:26:00 47.37 kg/m2 [facility] Systolic blood pressure 2024-04-23 06:00:00 132 mm[Hg] [facility] Diastolic blood pressure 2024-04-23 06:00:00 78 mm[Hg] [facility] Heart rate 2024-04-23 06:00:00 95 /min [facility] Body temperature 2024-04-23 06:00:00 36.89 [facility] Respiratory rate 2024-04-23 06:00:00 20 /min [facility] Oxygen saturation in Arterial blood by Pulse oximetry 2024-04-23 06:00:00 97 /min [facility] Body height 2024-04-23 04:35:00 157.5 cm [facility] Body weight 2024-04-23 04:35:00 119.75 kg [facility] BMI 2024-04-23 04:35:00 48.29 kg/m2 [facility] Systolic blood pressure 2024-04-20 06:30:00 112 mm[Hg] [facility] Diastolic blood pressure 2024-04-20 06:30:00 58 mm[Hg] [facility] Heart rate 2024-04-20 06:30:00 98 /min [facility] Respiratory rate 2024-04-20 06:30:00 16 /min [facility] Oxygen saturation in Arterial blood by Pulse oximetry 2024-04-20 06:30:00 97 /min [facility] Body temperature 2024-04-20 04:59:00 36.78 [facility] Body height 2024-04-20 04:59:00 157.5 cm [facility] Body weight 2024-04-20 04:59:00 117.935 kg [facility] BMI 2024-04-20 04:59:00 47.55 kg/m2 [facility] Systolic blood pressure 2024-04-11 10:23:00 127 mm[Hg] [facility] Diastolic blood pressure 2024-04-11 10:23:00 88 mm[Hg] [facility] Heart rate 2024-04-11 10:23:00 89 /min [facility] Body temperature 2024-04-11 10:23:00 36.83 [facility] Respiratory rate 2024-04-11 10:23:00 18 /min [facility] Oxygen saturation in Arterial blood by Pulse oximetry 2024-04-11 10:23:00 98 /min [facility] Body height 2024-04-11 07:28:00 162.6 cm [facility] Body weight 2024-04-11 07:28:00 120.022 kg [facility] BMI 2024-04-11 07:28:00 45.42 kg/m2 [facility] Systolic blood pressure 2024-04-07 22:48:00 148 mm[Hg] [facility] Diastolic blood pressure 2024-04-07 22:48:00 97 mm[Hg] [facility] Heart rate 2024-04-07 22:48:00 96 /min [facility] Body temperature 2024-04-07 22:48:00 36.89 [facility] Respiratory rate 2024-04-07 22:48:00 18 /min [facility] Body height 2024-04-07 22:48:00 160 cm [facility] Body weight 2024-04-07 22:48:00 117.935 kg [facility] BMI 2024-04-07 22:48:00 46.06 kg/m2 [facility] Oxygen saturation in Arterial blood by Pulse oximetry 2024-04-07 22:48:00 99 /min [facility] Systolic blood pressure 2024-02-18 05:30:00 117 mm[Hg] [facility] Diastolic blood pressure 2024-02-18 05:30:00 64 mm[Hg] [place] [facility] Heart rate 2024-02-18 05:30:00 80 /min [facility] Body temperature 2024-02-18 05:30:00 36.5 [facility] Respiratory rate 2024-02-18 05:30:00 15 /min [facility] Oxygen saturation in Arterial blood by Pulse oximetry 2024-02-18 05:30:00 98 /min [facility] Body height 2024-02-18 02:25:00 157.5 cm [facility] Body weight 2024-02-18 02:25:00 113.399 kg [facility] BMI 2024-02-18 02:25:00 45.73 kg/m2 [facility] Procedures Procedure Date / Time Performed Performing Clinicia n Source POCT TEST 2024-07-07 09:57:00 Keyanna Heaton [facility] CT ABDOMEN PELVIS WO CONTRAST 2024-06-13 03:03:27 Singer [facility] POCT TEST 2024-06-13 02:18:00 Yoni Ocasio [facility] LIPASE 2024-06-13 02:14:00 [facility] COMP. METABOLIC PANEL ([id number]) 2024-06-13 02:14:00 Singer [facility] CBC WITH DIFF 2024-06-13 02:14:00 Singer [facility] URINALYSIS 2024-06-13 02:14:00 Singer [facility] INFLUENZA A/B RSV COVID NAAT 2024-05-04 10:42:00 Johnny Haynes [facility] XR CHEST 1 VW 2024-04-23 04:48:00 Patito العلي [facility] INFLUENZA A/B RSV COVID NAAT 2024-04-23 04:41:00 Sangeeta العلي [facility] RAPID STREP SCREEN FOR GROUP A 2024-04-20 05:04:00 Galdino Franz [facility] INFLUENZA A/B RSV COVID NAAT 2024-04-20 05:04:00 Galdino Franz [facility] COMP. METABOLIC PANEL ([id number]) 2024-04-11 08:21:00 Johnny Haynes [facility] CBC WITH DIFF 2024-04-11 08:21:00 Johnny Haynes [facility] URINALYSIS 2024-04-11 07:35:00 Johnny Haynes [facility] POCT TEST 2024-04-11 07:35:00 Johnny Corea [facility] POCT TEST 2024-02-18 04:47:00 Keyanna Heaton [facility] Encounters Start Date/Time End Date/Time Encounter Type Admission Type Attending [facility] Facility Care Department Encounter ID Source 2024-07-07 03:54:00 2024-07-07 05:36:00 Emergency X KEYANNA HEATON WAKILI [facility] E[facility] [id number] [facility] 2024-07-07 03:54:00 2024-07-07 05:36:00 Emergency Keyanna Heaton [facility] [id number] [id number] [id number] [id number] [facility] 2024-06-12 20:50:00 2024-06-12 23:03:00 Emergency KATHRYN DEL CID PHILLIP [facility] ERT [id number] [facility] 2024-06-12 20:50:00 2024-06-12 23:03:00 Emergency Kathryn Ocasio [facility] [id number] 350.1.13.10 4.2.7.2.686 [id number] [facility] 2024-05-09 22:47:00 2024-05-10 01:10:00 Emergency GALDINO CORONA SHINTA [facility] ERT [id number] [facility] 2024-05-04 04:18:00 2024-05-04 06:30:00 Emergency X JOHNNY HAYNES ERIN [facility] ERT [id number] [facility] 2024-05-04 04:18:00 2024-05-04 06:30:00 Emergency Johnny Haynes [facility] [id number] [id number] [id number] [id number] [facility] 2024-04-22 22:42:00 2024-04-23 00:06:00 Emergency Sangeeta العلي [facility] [id number] 350.1.13.10 [id number] [id number] [facility] 2024-04-22 22:42:00 2024-04-23 00:06:00 Emergency X SANGEETA العلي [facility] ERT [id number] [facility] 2024-04-19 23:01:00 2024-04-20 00:34:00 Emergency X GALDINO FRANZ SHINTA [facility] ERT [id number] [facility] 2024-04-19 23:01:00 2024-04-20 00:34:00 Emergency CeferinoGaldino low [facility] [id number] 350.1.13.10 4.2.7.2.686 [id number] [facility] 2024-04-11 00:00:00 2024-04-11 14:08:40 Case Management Anish Charles [facility] [id number] 350.1.13.10 [id number] [id number] [facility] 2024-04-11 01:33:00 2024-04-11 04:25:00 Emergency JOHNNY CONTEH ERIN [facility] ERT [id number] [facility] 2024-04-11 01:33:00 2024-04-11 04:25:00 Emergency Johnny Haynes [facility] [id number] 350.1.13.10 4.2.7.2.686 [id number] [facility] 2024-04-07 16:51:00 2024-04-07 17:37:00 Emergency X AIXA SAWYER VIPINORQUIDEA [facility] [id number] [facility] 2024-04-07 16:51:00 2024-04-07 17:37:00 Emergency Aixa Sawyer Mariela [facility] [id number] 350.1.13.10 4.2.7.2.686 [id number] [facility] 2024-02-17 20:28:00 2024-02-18 00:05:00 Emergency Vinicio OBRIENELLISAVAKEYANNA WAKILI [facility] ERT [id number] [facility] 2024-02-17 20:28:00 2024-02-18 00:05:00 Emergency CaitlinKeyanna saavedra [facility] [id number] 350.1.13.10 [id number] [id number] [facility] Results Test Description Test Time Test Comments Results Result Co mments Source [facility] with [id number] 03:47:03* Test Item Value Reference Range Interpretation [...] g/dL 31.6-35.1 L RDW-SD (test code = 36004-6) 43.0 fL 39.0-49.9 RDW-CV (test code = 788-0) 15.5 % 12.0-15.5 PLT (test code = 777-3) 519 166-358 H MPV (test code = 19694-0) 8.4 fL 9.5-12.9 L NRBC/100 WBC (test code = 6998548737) 0.0 0.0-10.0 NRBC x10^3 (test code = 9782180237) See_Comment [Automated messa ge] The system which generated this result transmitted reference range: 10*3/?L. The reference range was not used to interpret this result as normal/abnormal. GRAN MAT (NEUT) % (test code = 770-8) 55.3 % IMM GRAN % (test code = 1724370382) 0.50 % LYMPH % (test code = 736-9) 32.9 % MONO % (test code = 5905-5) 7.5 % EOS % (test code = 713-8) 2.7 % BASO % (test code = 706-2) 1.1 % GRAN MAT x10^3(ANC) (test code = 9642639971) 7.21 10*3/uL 1.88-7.09 H IMM GRAN x10^3 (test code = 5669166856) 0.07 10*3/uL 0.00-0.06 H LYMPH x10^3 (test code = 731-0) 4.28 10*3/uL 1.32-3.29 H MONO x10^3 (test code = 742-7) 0.97 10*3/uL 0.33-0.92 H EOS x10^3 (test code = 711-2) 0.35 10*3/uL 0.03-0.39 BASO x10^3 (test code = 704-7) 0.14 10*3/uL 0.01-0.07 H Lab Interpretation (test code = 77589-8) [facility] wo [id number] 03:29:40CT ABDOMEN PELVIS WO CONTRAST Indication: Epigastric [...] air orfree fluid. Skeleton: No acute osseous pathology.[facility] Met[facility] Panel ([id number]) 2024-06-13 03:03:59* Test Item Value Reference Range Interpretation Comme nts NA (test code = 3909958344) 137 mmol/L 135-145 K (test code = 9654162280) 4.2 mmol/L 3.5-5.0 CL (test code = 6086529855) 99 mmol/L 98-108 CO2 TOTAL (test code = 0462686130) 31 mmol/L 23-31 AGAP (test code = 3196682956) 7 2-16 BUN (test code = 5072342495) 13 mg/dL 7-23 GLUCOSE (test code = 1819963696) 97 mg/dL 70-110 CREATININE (test code = 2160-0) 0.71 mg/dL 0.50-1.04 TOTAL BILI (test code = 0442556608) 0.3 mg/dL 0.1-1.1 CALCIUM (test code = 2215441560) 9.2 mg/dL 8.6-10.6 T PROTEIN (test code = 5679221174) 8.1 g/dL 6.3-8.2 ALBUMIN (test code = 3273287459) 4.2 g/dL 3.5-5.0 ALK PHOS (test code = 5799612681) 104 U/L 34-122 ALTv (test code = 1742-6) 25 U/L 5-35 AST(SGOT) (test code = 8449660861) 23 U/L 13-40 eGFR (test code = 73667-7) 116.0 mL/min/1.73m2 CKD-EPI eGFR (20 21). Assuming creatinine has been stable day-to-day for at least three months, the eGFR indicates Category G1 (>= 90 mL/min/1.73 m2) [facility] 03:03:39* Test Item Value Reference Range Interpretation Comme nts LIPASE (test code = 6635272696) 75 U/L 0-220 Lab Interpretation (test cod e = 62563-6) Normal [facility] [id number] 02:18:00* Test Item Value Reference Range Interpretation Comme nts POCT PREG (test code = 1605) Negative On board controls acceptable with C Line (test code = 3574) Yes POCT PREG LOT # (test code = 3575) [id number] POCT PREG TEST DATE ( test code = 3576) 09/23/2025 Lab Interpretation (test cod e = 21811-6) Normal [facility] 1 [id number] 05:26:55Ordering physician: SANGEETA العلي Indication: Shortness of breath Comparison: None Technical quality: Adequate Findings: Single AP view of the chest. The cardiopericardial silhouette iswithin normal limits. There is mild thickening of the green of the centralairways without focal consolidation. The visualized bony thorax is intact.[facility]. Metabolic Panel ([id number]) 2024-04-11 09:34:22* Test Item Value Reference Range Interpretation Comme nts NA (test code = 3813288653) 137 mmol/L 135-145 K (test code = 5900953286) 3.6 mmol/L 3.5-5.0 CL (test code = 1231502674) 104 mmol/L 98-108 CO2 TOTAL (test code = 5396762634) 30 mmol/L 23-31 AGAP (test code = 2627142007) 3 2-16 BUN (test code = 4623997778) 9 mg/dL 7-23 GLUCOSE (test code = 0687461003) 104 mg/dL 70-110 CREATININE (test code = 2160-0) 1.05 mg/dL 0.50-1.04 H TOTAL BILI (test code = 6661680229) 0.2 mg/dL 0.1-1.1 CALCIUM (test code = 2087468462) 9.3 mg/dL 8.6-10.6 T PROTEIN (test code = 7208608583) 7.6 g/dL 6.3-8.2 ALBUMIN (test code = 9309869149) 4.0 g/dL 3.5-5.0 ALK PHOS (test code = 5760020794) 95 U/L 34-122 ALTv (test code = 1742-6) 17 U/L 5-35 AST(SGOT) (test code = 3902734466) 17 U/L 13-40 eGFR (test code = 64420-2) 72.5 mL/min/1.73m2 CKD-EPI eGFR (2020). Assuming creatinine has been stable day-to-day for at least three months, the eGFR indicates Category G2 (60 - 89 mL/min/1.73 m2) Lab Interpretation (test code = 68399-2) Abnormal [facility] with [id number] 09:14:28* Test Item Value Reference Range Interpretation [...] g/dL 31.6-35.1 L RDW-SD (test code = 26726-3) 49.6 fL 39.0-49.9 RDW-CV (test code = 788-0) 17.5 % 12.0-15.5 H PLT (test code = 777-3) 544 166-358 H MPV (test code = 15516-1) 8.5 fL 9.5-12.9 L NRBC/100 WBC (test code = 4285353319) 0.0 0.0-10.0 NRBC x10^3 (test code = 4756927078) See_Comment [Automated message] The system which generated this result transmitted reference range: 10*3/?L. The reference range was not used to interpret this result as normal/abnormal. GRAN MAT (NEUT) % (test code = 770-8) 69.4 % IMM GRAN % (test code = 9045524123) 0.80 % LYMPH % (test code = 736-9) 21.9 % MONO % (test code = 5905-5) 5.2 % EOS % (test code = 713-8) 2.0 % BASO % (test code = 706-2) 0.7 % GRAN MAT x10^3(ANC) (test code = 6154756210) 13.08 10*3/uL 1.88-7.09 H IMM GRAN x10^3 (test code = 5032915308) 0.15 10*3/uL 0.00-0.06 H LYMPH x10^3 (test code = 731-0) 4.12 10*3/uL 1.32-3.29 H MONO x10^3 (test code = 742-7) 0.97 10*3/uL 0.33-0.92 H EOS x10^3 (test code = 711-2) 0.37 10*3/uL 0.03-0.39 BASO x10^3 (test code = 704-7) 0.14 10*3/uL 0.01-0.07 H Lab Interpretation (test code = 26230-9) Abnormal [facility] [id number] 07:35:00* Test Item Value Reference Range Interpretation Comme nts POCT PREG (test code = 1605) Negative On board controls acceptable with C Line (test code = 3574) Yes POCT PREG LOT # (test code = 3575) [id number] POCT PREG TEST DATE ( test code = 3576) 05/03/2025 Lab Interpretation (test cod e = 94809-0) [id number] 04:47:00* Test Item Value Reference Range Interpretation Comme nts POCT PREG (test code = 1605) Negative On board controls acceptable with C Line (test code = 3574) Yes POCT PREG LOT # (test code = 3575) [id number] POCT PREG TEST DATE ( test code = 3576) 02/08/2025 Lab Interpretation (test cod e = 73073-2) Normal [facility] Notes Date/Time Note Provider Source 2024-07-07 05:35:01 [...] in no apparent distress, Mayi Montano RN [facility] 2024-07-07 03:49:12 Pt arrived ambulatory to triage complaining of left foot pain radiating up leg since yesterday. Pt stated the pain is at the ball of the foot, worse with ambulation. Denies injury. 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 Foot Injury Location: Leg Time [...] for follow-up Christiano Lim Jr., DPM Specialty: FINISHED STOCK INSPECTOR [facility] [address] [place] [address] [address] [facility] [id number] Jag August MD Specialty: ORTHOPAEDIC SURGERY [address] [facility] [id number] Electronically signed by: Keyanna Heaton MD 07/07/24 0529 [facility] 2024-06-12 23:02:30 Pt given printed and [...] in no apparent distress, Sada Jones RN [facility] 2024-06-12 20:47:06 Pt c/o burning and stabbing in upper epigastric pain. Nausea but no vomiting. Began friday Mayi Montano RN [facility] 2024-05-04 06:28:14 Pt given printed and [...] in no apparent distress. 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 Provided d/c instructions, Rx medication use, & f/u instructions; pt. Verbalized understanding; no IV access at d/c; no apparent S&S of distress noticed at d/c; ambulates with steady gait [facility] 2024-04-22 22:32:49 Pt. Presents to ED [...] when she inhales & exhales; denies N/V/D [facility] Fanta Aponte RN [facility] 2024-04-20 00:33:36 PT D/C home. GCS15, VS stable. Given D/C paperwork. Pt ambulatory at time of discharge. Pt educated on med usage, follow up care, s/s worsening condition, need for hydration. Pt verbalized understanding of discharge paperwork. Pt ambulated from ED in NAD with friend. Prescription x 1 sent to pharmacy. [facility] 2024-04-19 22:57:08 Pt presents to ED with c/o viral illness (cough, nasal congestion, feeling ill) Pt has hx of asthma and smokes. Pt states symptoms began yesterday. 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 Pt was seen in ED on 04/07/24 however eloped from ED without finishing care. Pt states last cycle was on 03/29/24 and has been bleeding since then. Pt states cramping is in lower abd and comes and goes. She also feels pain in lower back at times. [facility] 2024-04-07 17:31:33 PT ELOPE PRIOR TO DISPO. LAST SEEN IN STABLE CONDITION, AOx4, NO ATAXIA NOTED. PT DID NOT NOTIFY STAFF OR SIGN AMA PAPERS. ER ROOM ATTENDANT Norma Jovel RN [facility] 2024-04-07 17:30:00 Attempted to call pt from [facility] with no response. [facility] 2024-04-07 17:12:02 Attempted to call from [facility] with no response. [facility] 2024-04-07 17:01:03 Called from [employer], no response. ITOS Abernathy RN [facility] 2024-04-07 16:51:35 Pt given urine cup and placed in the lobby, pt advice to notify nurse with any other concerns or if symptoms worsen. [facility] 2024-04-07 16:47:21 Patient arrived ambulatory c/o heavy vaginally bleeding for the past 5 days with severe abdominal cramping. Patient denies any pregancy, any trauma to area. [facility] 2024-02-18 00:03:33 Pt discharged with diagnosis of strain of L shoulder. Printed and verbal instructions reviewed with and given to pt. Prescriptions given x 3. Pt verbalized understanding of teaching, medications, and recommended follow-up. Denies questions or concerns at this time. Pt ambulatory at discharge. Appears in no apparent distress. No ataxia noted. ITOS Jovel RN [facility] 2024-02-17 20:28:15 Pt given urine cup and placed in the lobby, pt advice to notify nurse with any other concerns or if symptoms worsen. [facility] 2024-02-17 20:23:35 Pt states that she was pulling Dolley with boxes on it and felt a pop in the left shoulder. Pt states she is also having numbness in the left arm. [facility] 2024-02-17 20:14:00 [facility] Emergency Department Note Patient Name: Boris Lorenzo Date of : 1990 33 year old female Treatment Room: [place] [address] Primary Care Physician: No primary care provider on file. 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
[2024-07-18] MEDS ORDERED: KETOROLAC 30 MG/ML INJ ONE (01:46)
[2024-07-18] MEDS ORDERED: METOCLOPRAMIDE 10 MG/2mL INJ ONE (01:46)
[2024-07-18] MEDS ORDERED: NA CHLORIDE 0.9% 1,000 ML ONE (01:46)
[2024-07-18] MEDS ORDERED: DIPHENHYDRAMINE 50 MG/ML VIAL ONE (01:46)
--- NOTE | 2024-07-18 03:45 | ER ---
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 C/O br2 PPAIN TO LEFT FOREHEAD. Coronavirus screen: Client denies travel out of the [place] in the last 14 days. Ebola Screen: Patient denies exposure to infectious person. Mechanism of Injury: resulted from a direct blow, WALL. Initial Sepsis Screen: Does the patient meet any 2 criteria? No. Patient's initial sepsis screen is negative. Does the patient have a suspected source of infection? No. Patient's initial sepsis screen is negative. Risk Assessment: Do you want to hurt yourself or someone else? Patient reports no desire to harm self or others. 00:54 Method Of Arrival: Ambulatory br2 00:54 Acuity: SALLY 3 br2 Triage Assessment: 00:56 General: Appears uncomfortable, Behavior is calm, cooperative. Pain: Complains of pain br2 in forehead, left ear and left eye Pain currently is 8 out of 10 on a pain scale. [employer] DEAN: 00:56 LMP 06/27/2024, unknown br2 Historical: - Allergies: 00:56 adhesive; br2 00:56 Iodine; br2 00:56 IV contrast; br2 00:56 SHELLFISH; br2 - PMHx: 00:56 Asthma; br2 - PSHx: 00:56 right knee; br2 - Immunization history:: Adult Immunizations up to date. - Infectious Disease History:: Denies. - Social history:: Smoking status: Patient reports the use of cigarette tobacco products, smokes one-half pack cigarettes per day, Reported history of juuling and/or vaping. Patient uses alcohol, occasionally. Patient/guardian denies using street drugs. - Family history:: not pertinent. Screenin:37 [facility] ED Fall Risk Assessment (Adult) History of falling in the last 3 months, br2 including since admission No falls in past 3 months (0 pts) Confusion or Disorientation No (0 pts) Intoxicated or Sedated No (0 pts) Impaired Gait No (0 pts) Mobility Assist Device Used No (0 pt) Altered Elimination No (0 pt) Score/Fall Risk Level 0 - 2 = Low Risk Oriented to surroundings. Abuse screen: Denies threats or abuse. Denies injuries from another. Nutritional screening: No deficits noted. Tuberculosis screening: No symptoms or risk factors identified. Assessment: 01:37 Reassessment: SEE TRIAGE ASSESSMENT. br2 01:38 Neuro: Prasad Agitation-Sedation Scale (RASS): 0 - Alert and Calm Level of br2 Consciousness is awake, alert, obeys commands, Oriented to person, place, time, situation, Reports headache in left frontal area. 02:56 Reassessment: Patient is alert, oriented x 3, equal unlabored respirations, skin br2 warm/dry/pink. Patient states feeling better. Patient states symptoms have improved. Vital Signs: 00:54 BP 160 / 99; Pulse 90; Resp 18; Temp 97.2(TE); Pulse Ox 99% on R/A; Weight 117.93 kg; br2 Height 5 ft. 3 in. ; Pain 8/10; 02:30 BP 129 / 88; Pulse 84; Resp 18; Pulse Ox 99% ; Pain 0/10; br2 00:54 Body Mass Index 46.06 (117.93 kg, 160.02 cm) br2 00:54 Pain Scale: Adult br2 02:30 Pain Scale: Adult br2 Trell Coma Score: 00:54 Eye Response: spontaneous(4). Motor Response: obeys commands(6). Verbal Response: br2 oriented(5). Total: 15. ED Course: 00:40 Patient arrived in ED. mr 00:46 Fredy Horn MD is Attending Physician. rt 00:56 Triage completed. br2 00:56 Arm band placed on. br2 01:15 Inserted saline lock: 22 gauge in left upper arm, using aseptic technique. Blood br2 collected. Flushed with 10 mL NS. 01:37 Bed in low position. Call light in reach. Side rails up X 1. Provided Education on: br2 PLAN OF CARE. 02:12 CT Head C Spine In Process Unspecified. EDMS 04:00 No provider procedures requiring assistance completed. IV discontinued, intact, br2 bleeding controlled, No redness/swelling at site. Pressure dressing applied. Administered Medications: 02:05 Drug: Ketorolac IVP 15 mg IVP once Route: IVP; Site: left upper arm; br2 03:00 Follow up: Response: No adverse reaction br2 02:07 Drug: NS 0.9% IV 1000 ml IV at 1000 ml once; to be given as a bolus over 60 minutes br2 Route: IV; Rate: 1000 ml; Site: left upper arm; 04:36 Follow up: Response: No adverse reaction; IV Status: Completed infusion; IV Intake: br2 1000ml 02:08 Drug: metoCLOPramide IVP 10 mg IVP once; over 1 to 2 minutes Route: IVP; Site: left br2 upper arm; 02:30 Follow up: Response: No adverse reaction br2 02:08 Drug: diphenhydrAMINE IVP 25 mg IVP once Route: IVP; Site: left upper arm; br2 02:40 Follow up: Response: No adverse reaction br2 Intake: 04:36 IV: 1000ml; Total: 1000ml. br2 Outcome: 03:44 Discharge ordered by . rt 04:00 Discharged to home br2 04:00 Condition: improved 04:00 Discharge instructions given to patient, Instructed on discharge instructions, follow up and referral plans. Demonstrated understanding of instructions, follow-up care, 04:02 Patient left the ED. br2 Signatures: Dispatcher [employer] EDMS Laury Rodríguez, Fredy Blanc MD MD rt Estephanie Nesbitt RN RN br2 Corrections: (The following items were deleted from the chart) 04:37 04:35 Patient left the ED. br2 br2
--- NOTE | 2024-07-18 03:45 | EDPHYS ---
Physician Documentation [facility] Name: Jan Lorenzo Age: 34 yrs Sex: Female : 1990 Arrival Date: 07/18/2024 Time: 00:38 Bed 11 Private MD: ED Physician Fredy Horn HPI: 07/18 03:27 This 34 yrs old Female presents to ER via Ambulatory with complaints of Head rt Injury-Adult, Headache. 03:27 About 2 hours prior to arrival, the patient was with series of up to a truck when she rt hit her forehead onto the door. She reports having left-sided migraine since then. Denies other acute complaints at this time, symptoms are moderate severity, no other aggravating elevating factors.. 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 - Infectious Disease History:: Denies. - Social history:: Smoking status: Patient reports the use of cigarette tobacco products, smokes one-half pack cigarettes per day, Reported history of juuling and/or vaping. Patient uses alcohol, occasionally. Patient/guardian denies using street drugs. - Family history:: not pertinent. ROS: 03:27 Constitutional: Negative for fever, chills, and weight loss, Cardiovascular: Negative rt for chest pain, palpitations, and edema, Respiratory: Negative for shortness of breath, cough, wheezing, and pleuritic chest pain, Abdomen/GI: Negative for abdominal pain, nausea, vomiting, diarrhea, and constipation, MS/Extremity: Negative for injury and deformity, Skin: Negative for injury, rash, and discoloration, 03:27 Neuro: Positive for headache, Negative for loss of consciousness, Exam: 03:27 Constitutional: This is a well developed, well nourished patient who is awake, alert, rt and in no acute distress. Head/Face: Normocephalic, atraumatic. Chest/axilla: Normal chest wall appearance and motion. Nontender with no deformity. No lesions are appreciated. Cardiovascular: Regular rate and rhythm with a normal S1 and S2. No gallops, murmurs, or rubs. Normal PMI, no JVD. No pulse deficits. Respiratory: Lungs have equal breath sounds bilaterally, clear to auscultation and percussion. No rales, rhonchi or wheezes noted. No increased work of breathing, no retractions or nasal flaring. Abdomen/GI: Soft, non-tender, with normal bowel sounds. No distension or tympany. No guarding or rebound. No evidence of tenderness throughout. Skin: Warm, dry with normal turgor. Normal color with no rashes, no lesions, and no evidence of cellulitis. MS/ Extremity: Pulses equal, no cyanosis. Neurovascular intact. Full, normal range of motion. Neuro: Awake and alert, GCS 15, oriented to person, place, time, and situation. Cranial nerves II-XII grossly intact. Motor strength 5/5 in all extremities. Sensory grossly intact. Cerebellar exam normal. Normal gait. Vital Signs: 00:54 BP 160 / 99; Pulse 90; Resp 18; Temp 97.2(TE); Pulse Ox 99% on R/A; Weight 117.93 kg; br2 Height 5 ft. 3 in. ; Pain 8/10; 02:30 BP 129 / 88; Pulse 84; Resp 18; Pulse Ox 99% ; Pain 0/10; br2 00:54 Body Mass Index 46.06 (117.93 kg, 160.02 cm) br2 00:54 Pain Scale: Adult br2 02:30 Pain Scale: Adult br2 Trell Coma Score: 00:54 Eye Response: spontaneous(4). Motor Response: obeys commands(6). Verbal Response: br2 oriented(5). Total: 15. MDM: 01:36 Medical Screening Exam initiated rt 06:07 Differential diagnosis: Headache, concussion, intracranial hemorrhage. Data reviewed: rt vital signs, nurses notes, radiologic studies. I considered the following discharge prescriptions or medication management in the emergency department Medications were administered in the Emergency Department. See MAR. Independent interpretation of the following test(s) in the Emergency Department CT Scan: My interpretation is No intracranial hemorrhage seen on interpretation of CT scan images. Counseling: I had a detailed discussion with the patient and/or guardian regarding the historical points, exam findings, and any diagnostic results supporting the discharge/admit diagnosis, radiology results, the need for outpatient follow up, to return to the emergency department if symptoms worsen or persist or if there are any questions or concerns that arise at home. Response to treatment: the patient's symptoms have markedly improved after treatment. 07/18 01:39 Order name: CT Head C Spine rt Administered Medications: 02:05 Drug: Ketorolac IVP 15 mg IVP once Route: IVP; Site: left upper arm; br2 03:00 Follow up: Response: No adverse reaction br2 02:07 Drug: NS 0.9% IV 1000 ml IV at 1000 ml once; to be given as a bolus over 60 minutes br2 Route: IV; Rate: 1000 ml; Site: left upper arm; 04:36 Follow up: Response: No adverse reaction; IV Status: Completed infusion; IV Intake: br2 1000ml 02:08 Drug: metoCLOPramide IVP 10 mg IVP once; over 1 to 2 minutes Route: IVP; Site: left br2 upper arm; 02:30 Follow up: Response: No adverse reaction br2 02:08 Drug: diphenhydrAMINE IVP 25 mg IVP once Route: IVP; Site: left upper arm; br2 02:40 Follow up: Response: No adverse reaction br2 Disposition Summary: 07/18/24 03:44 Discharge Ordered Notes: Location: Home rt Problem: new rt Symptoms: have improved rt Condition: Stable rt Diagnosis - Closed head injury rt Followup: rt - With: Private Physician - When: 2 - 3 days - Reason: Discharge Instructions: - Discharge Summary Sheet rt - Head Injury, Adult rt Forms: - Medication Reconciliation Form rt - Antibiotic Education rt - Prescription Opioid Use rt - Patient Portal Instructions rt - Leadership Thank You Letter rt Signatures: Dispatcher [employer] Fredy Skinner MD MD rt Estephanie Nesbitt, RN RN br2
--- NOTE | 2024-07-18 04:13 | RAD REPORT ---
PROCEDURE: CT Head and Cervical Spine Without Intravenous Contrast CLINICAL INDICATION: The patient is 34 years old and is Female; Trauma. TECHNIQUE: Axial computed tomography images of the head/brain and cervical spine without intravenous contrast. Sagittal and coronal reformatted images were created and reviewed. This CT exam was performed using one or more of the following dose reduction techniques: automated exposure control, adjustmen t of the mA and/or kV according to patient size, and/or use of iterative reconstruction technique. COMPARISON: None. FINDINGS: BRAIN: No extra-axial fluid collection. No intracranial hemorrhage. No transtentorial herniation. N o focal courtney-white matter differentiation abnormality. VENTRICLES: Unremarkable No ventriculomegaly. SKULL: No acute fracture. SINUSES: Bilateral maxillary sinus retention cysts. MASTOID AIR CELLS: Unremarkable as visualized. No mastoid effusion. VERTEBRAE: Unremarkable No acute fracture. Normal alignment. DISCS/SPINAL CANAL/NEURAL FORAMINA: No acute findings. No spinal canal stenosis. SOFT TISSUES: Unremarkable IMPRESSION: No acute intracranial or cervical spine abnormality. Electronically signed by: Chavez Polanco MD 07/18/2024 03:22 AM CDT Due to temporary technical issues with the PACS/[employer] reporting system, reports are being payton d by the in-house radiologist without review as a courtesy to ensure prompt reporting the interpreting radiologist is fully responsible for the content of the report. Transcribed Date/Time: 07/18/2024 4:12 AM
[2024-07-18 04:49] VITALS: BP 160/99; TEMP 97.2; O2SAT 99
== END 2024-07-18 04:35 | disposition home or self-care (01) ==
LOC: ER 00:38
DX: S09.90XA Unspecified injury of head, initial encounter (principal); W22.8XXA Striking against or struck by other objects, initial encounter
CPT/HCPCS: 96361; 70450; 72125; 96375; 96374; 99284; J2765; J1200; J7030

== ENCOUNTER 2024-12-05 12:15 | Emergency (ER) | payer OTHER ==
--- OUTSIDE RECORDS SUMMARY | 2024-12-05 12:21 | XMS REPORT | Continuity of Care Document ---
Author Name Unknown Address [address] [facility] [place] [address] [facility] Address [address] [facility] [address] [place] [address] Care Team Providers Care Fiber Designer Name Role Phone PCP, PATIENT DOES NOT HAVE A Primary Care Physic vitaliy Unavailable KEYANNA HEATON Attending Clinician Unavailable KEYANNA HEATON Attending Clinician Unavailable KATHRYN OCASIO Attending Clinician Unavailable KATHRYN OCASIO Attending Clinician Unavailable GALDINO FRANZ Attending Clinician Unavailable GALDINO FRANZ Attending Clinician Unavailable JOHNNY HAYNES Attending Clinician Unav ailable JOHNNY HAYNES Attending Clinician Unav ailable Johnny Haynes MD Attending Clinician + SANGEETA العلي Attending Clinician Gaby vailable Sangeeta العلي MD Attending Clinician Galdino Estevez Attending Clinician [phone] Anish Charles MD Attending Clinician [phone] AIXA SAWYER Attending Clinician Unavailable AIXA SAWYER Attending Clinician Unavailable Aixa Sauceda Attending Clinician [phone] Keyanna Heaton MD Attending Clinician [phone] KEYANNA HEATON Admitting Clinician Unavailable KATHRYN OCASIO Admitting Clinician Unavailable JOHNNY HAYNES Admitting Clinician Unav ailable العلي, SANGEETA DIORA Admitting Clinician Gaby vailable Payers Payer Name Policy Type Policy Number Effective Date Expirati on Date Source HIM [facility] [id number] 2024 00:00:00 [facility] [place] [facility] [id number] 2024 00:00:00 2024 00:00:00 Allergies, Adverse Reactions, Alerts Allergy Name Allergy Type Status Severity Reaction(s) Onset Date Inactive Date Treating Clinician Comments Source SHELLFIS H DERIVED DRUG INGREDI Active Anaphylaxis 04-07 00:00: 00 [facility] Shellfis h Derived Propensi ty to adverse reaction s Active Anaphylaxis 04-07 00:00: 00 [facility] IODINE DRUG INGREDI Active Anaphylaxis 2023-03 00:00: 00 [facility] Iodine Propensi ty to adverse reaction s Active Anaphylaxis 2023-03 00:00: 00 [facility] NO KNOWN ALLERGIE S Drug Class Active [facility] Social History Social Habit Start Date Stop Date Quantity Comments Source [facility] Sex assigned at 1990 00:00:00 1990 00:00:00 [facility] Smoking Status Start Date Stop Date Source Tobacco smoking consumption unknown [facility] Medications Ordered Medication Name Filled Medication Name Start Date Stop Date Current Medication? Ordering Clinician Indication Dosage Frequency Signature (SIG) Comments Components Source traMADoL (ULTRAM) tablet 50 mg 07-07 11:15: 00 07-07 10:31 :00 No 50mg 50 mg, Oral, ONCE NOW, 1 dose, On Fri07/07/24 at 0615, Routine [facility] naproxen sodium 550 mg tablet 07-07 00:00: 00 Yes [id number] 550mg Take 1 tablet by mouth in the morning and 1 tablet in the evening. Take with meals. [facility] ondansetron (ZOFRAN (PF)) injection 4 mg 06-13 03:00: 00 06-13 02:15 :00 No 4mg 4 mg, Slow IV Push, ONCE, 1 dose, On 06/12/24 at 2200, 2 mL [facility] pantoprazol e (PROTONIX) 80 mg in NaCl 0.9% (NS) 20 mL syringe 06-13 02:45: 00 06-13 02:18 :00 No 80mg 80 mg, Slow IV Push, Administer over 2 Minutes, ONCE, 1 dose, On 06/12/24 at 2145, Routine [facility] NaCl 0.9% (NS) bolus infusion 1,000 mL 06-13 02:00: 00 06-13 03:59 :00 No 1000mL at 999 mL/hr, 1,000 mL, IV Infusion, ONCE, 1 dose, On 06/12/24 at 2100, STAT [facility] morpHINE (4 mg/mL) injection 4 mg 06-13 01:55: 33 Yes 4mg 4 mg, Slow IV Push, Q4HPRN, Starting on 06/12/24 at 2055, Until Discontinu ed, Routine, Pain (scale 7-10) [facility] sucralfate 1 gram tablet 06-12 00:00: 00 Yes [id number] 1g Take 1 tablet by mouth before meals and at bedtime. [facility] pantoprazol e 40 mg EC tablet 06-12 00:00: 00 Yes [id number] 40mg Take 1 tablet by mouth in the morning. [facility] cephALEXin 500 mg capsule 06-12 00:00: 00 06-18 04:59 :00 No [id number] 500mg Take 1 capsule by mouth 4 (four) times daily for 5 days. [facility] ibuprofen 600 mg tablet 09 00:00: 00 Yes [id number] 600mg Take 1 tablet by mouth every 8 (eight) hours as needed for Pain (scale 4-6). [facility] ipratropium -albuteroL (DUONEB) 0.5 mg-3 mg(2.5 mg base)/3 mL nebulizer solution 3 mL 04 14:00: 00 Yes 3mL 3 mL, Inhalation , QID, First dose on Fri05/04/24 at 0800, Until Discontinu ed, Routine [facility] methylpredn isolone sod succ (SOLU-MEDRO L) injection 125 mg 05-04 11:30: 00 05-04 10:43 :00 No 125mg 125 mg, Intramuscu lar, ONCE, 1 dose, On Fri05/04/24 at 0530, 2 mL [facility] albuterol 90 mcg/actuati on inhaler 05-04 00:00: 00 Yes [id number] 2{puff} Inhale 2 Puffs every 4 (four) hours as needed for Wheezing or Shortness of Breath. [facility] benzonatate 100 mg capsule 05-04 00:00: 00 Yes [id number] 100mg Take 1 capsule by mouth 3 (three) times daily as needed for Cough. [facility] ipratropium (ATROVENT) 0.02 % nebulizer solution 0.5 mg 04-23 06:15: 00 04-23 05:29 :00 No .5mg 0.5 mg, Inhalation , ONCE, 1 dose, On Fri04/23/24 at 0015, [facility] albuterol (PROVENTIL) 2.5 mg /3 mL (0.083 %) nebulizer solution 2.5 mg 04-23 05:30: 00 04-23 05:29 :00 No 2.5mg 2.5 mg, Inhalation , ONCE, 1 dose, On Fri04/22/24 at 2330, [facility] ipratropium (ATROVENT) 0.02 % nebulizer solution 0.5 mg 04-23 05:30: 00 04-23 05:28 :00 No .5mg 0.5 mg, Inhalation , ONCE, 1 dose, On Fri04/22/24 at 2330, [facility] methylpredn isolone sod succ (SOLU-MEDRO L) injection 125 mg 04-23 05:30: 00 04-23 05:26 :00 No 125mg 125 mg, Intramuscu lar, Q6H, 1 dose, First dose on Tyra 04/22/24 at 2330, MARILY [facility] albuterol 90 mcg/actuati on inhaler 04-22 00:00: 00 Yes [id number] 2{puff} Inhale 2 Puffs every 4 (four) hours as needed for Wheezing or Shortness of Breath. [facility] Nebulizer & Compressor For Neb Fadumo 04-22 00:00: 00 Yes [id number] Use as directed [facility] albuterol 2.5 mg /3 mL (0.083 %) nebulizer solution 04-22 00:00: 00 Yes [id number] 2.5mg Inhale 3 mL every 4 (four) hours. May also nebulize one extra every 6 hours. [facility] azithromyci n (ZITHROMAX) 500 mg tablet 04-22 00:00: 00 04-28 05:59 :00 No [id number] 500mg Take 1 tablet by mouth in the morning for 5 days. [facility] predniSONE 20 mg tablet 04-22 00:00: 00 04-28 05:59 :00 No [id number] 60mg Take 3 tablets by mouth every morning for 5 days. [facility] ipratropium -albuteroL (DUONEB) 0.5 mg-3 mg(2.5 mg base)/3 mL nebulizer solution 3 mL 04-20 06:15: 00 04-20 05:49 :00 No 3mL 3 mL, Inhalation , ONCE, 1 dose, On Fri04/20/24 at 0015, Routine [facility] ibuprofen (MOTRIN) tablet 800 mg 04-20 05:30: 00 04-20 05:49 :00 No 800mg 800 mg, Oral, ONCE, 1 dose, On 04/19/24 at 2330, MARILY [facility] albuterol 90 mcg/actuati on inhaler 04-20 00:00: 00 Yes [id number] 2{puff} Inhale 2 Puffs every 4 (four) hours as needed for Wheezing, Shortness of Breath or Bronchospa sm. [facility] cefdinir 300 mg capsule 04-11 00:00: 00 04-22 05:59 :00 No [id number] 300mg Take 1 capsule by mouth every 12 (twelve) hours for 10 days. [facility] HYDROcodone -acetaminop hen (NORCO) 10-325 mg tablet 1 tablet 2023-03 06:30: 00 02-17 05:30 :00 No 1{tbl} 1 tablet, Oral, ONCE NOW, 1 dose, On Fri02/18/24 at 0030, Routine [facility] dexamethaso ne sod phos PF injection 10 mg 2023-03 05:30: 00 02-17 05:30 :00 No 10mg 10 mg, Intramuscu lar, ONCE, 1 dose, On Fri02/17/24 at 2330, 1 mL [facility] predniSONE 20 mg tablet 2023-03 00:00: 00 Yes [id number] Take One tablet Orally Daily [facility] traMADoL (ULTRAM) 50 mg tablet 2023-03 00:00: 00 Yes [id number] 50mg Take 1 tablet by mouth every 6 (six) hours as needed for Pain (scale 7-10). Indication s: acute pain [facility] methocarbam oL 750 mg tablet 2023-03 00:00: 00 Yes [id number] 750mg Take 1 tablet by mouth every 6 (six) hours as needed for Pain (scale 7-10) (MUSCLE SPASM). [facility] Vital Signs Vital Name Observation Time Observation Value Comments S stefanie Systolic blood pressure 2024-07-07 10:31:00 132 mm[Hg] [facility] Diastolic blood pressure 2024-07-07 10:31:00 74 mm[Hg] [facility] Heart rate 2024-07-07 10:31:00 83 /min [facility] Body temperature 2024-07-07 10:31:00 36.72 [facility] Respiratory rate 2024-07-07 10:31:00 18 /min [facility] Oxygen saturation in Arterial blood by Pulse oximetry 2024-07-07 10:31:00 96 /min [facility] Body height 2024-07-07 08:50:00 160 cm [facility] Body weight 2024-07-07 08:50:00 127.007 kg [facility] BMI 2024-07-07 08:50:00 49.60 kg/m2 [facility] Systolic blood pressure 2024-06-13 03:45:00 144 mm[Hg] [facility] Diastolic blood pressure 2024-06-13 03:45:00 67 mm[Hg] [facility] Heart rate 2024-06-13 03:45:00 67 /min [facility] Body temperature 2024-06-13 03:45:00 37 [facility] Respiratory rate 2024-06-13 03:45:00 21 /min [facility] Oxygen saturation in Arterial blood by Pulse oximetry 2024-06-13 03:45:00 98 /min [facility] Body height 2024-06-13 01:48:00 157.5 cm [facility] Body weight 2024-06-13 01:48:00 128.685 kg [facility] BMI 2024-06-13 01:48:00 51.89 kg/m2 [facility] Systolic blood pressure 2024-05-04 12:00:00 121 mm[Hg] [facility] Diastolic blood pressure 2024-05-04 12:00:00 74 mm[Hg] [facility] Heart rate 2024-05-04 12:00:00 85 /min [facility] Body temperature 2024-05-04 12:00:00 36.83 [facility] Respiratory rate 2024-05-04 12:00:00 18 /min [facility] Oxygen saturation in Arterial blood by Pulse oximetry 2024-05-04 12:00:00 93 /min [facility] Body height 2024-05-04 10:26:00 157.5 cm [facility] Body weight 2024-05-04 10:26:00 117.482 kg [facility] BMI 2024-05-04 10:26:00 47.37 kg/m2 [facility] Systolic blood pressure 2024-04-23 06:00:00 132 mm[Hg] [facility] Diastolic blood pressure 2024-04-23 06:00:00 78 mm[Hg] [facility] Heart rate 2024-04-23 06:00:00 95 /min [facility] Body temperature 2024-04-23 06:00:00 36.89 [facility] Respiratory rate 2024-04-23 06:00:00 20 /min [facility] Oxygen saturation in Arterial blood by Pulse oximetry 2024-04-23 06:00:00 97 /min [facility] Body height 2024-04-23 04:35:00 157.5 cm [facility] Body weight 2024-04-23 04:35:00 119.75 kg [facility] BMI 2024-04-23 04:35:00 48.29 kg/m2 [facility] Systolic blood pressure 2024-04-20 06:30:00 112 mm[Hg] [facility] Diastolic blood pressure 2024-04-20 06:30:00 58 mm[Hg] [facility] Heart rate 2024-04-20 06:30:00 98 /min [facility] Respiratory rate 2024-04-20 06:30:00 16 /min [facility] Oxygen saturation in Arterial blood by Pulse oximetry 2024-04-20 06:30:00 97 /min [facility] Body temperature 2024-04-20 04:59:00 36.78 [facility] Body height 2024-04-20 04:59:00 157.5 cm [facility] Body weight 2024-04-20 04:59:00 117.935 kg [facility] BMI 2024-04-20 04:59:00 47.55 kg/m2 [facility] Systolic blood pressure 2024-04-11 10:23:00 127 mm[Hg] [facility] Diastolic blood pressure 2024-04-11 10:23:00 88 mm[Hg] [facility] Heart rate 2024-04-11 10:23:00 89 /min [facility] Body temperature 2024-04-11 10:23:00 36.83 [facility] Respiratory rate 2024-04-11 10:23:00 18 /min [facility] Oxygen saturation in Arterial blood by Pulse oximetry 2024-04-11 10:23:00 98 /min [facility] Body height 2024-04-11 07:28:00 162.6 cm [facility] Body weight 2024-04-11 07:28:00 120.022 kg [facility] BMI 2024-04-11 07:28:00 45.42 kg/m2 [facility] Systolic blood pressure 2024-04-07 22:48:00 148 mm[Hg] [facility] Diastolic blood pressure 2024-04-07 22:48:00 97 mm[Hg] [facility] Heart rate 2024-04-07 22:48:00 96 /min [facility] Body temperature 2024-04-07 22:48:00 36.89 [facility] Respiratory rate 2024-04-07 22:48:00 18 /min [facility] Body height 2024-04-07 22:48:00 160 cm [facility] Body weight 2024-04-07 22:48:00 117.935 kg [facility] BMI 2024-04-07 22:48:00 46.06 kg/m2 [facility] Oxygen saturation in Arterial blood by Pulse oximetry 2024-04-07 22:48:00 99 /min [facility] Systolic blood pressure 2024-02-18 05:30:00 117 mm[Hg] [facility] Diastolic blood pressure 2024-02-18 05:30:00 64 mm[Hg] [facility] Heart rate 2024-02-18 05:30:00 80 /min [facility] Body temperature 2024-02-18 05:30:00 36.5 [facility] Respiratory rate 2024-02-18 05:30:00 15 /min [facility] Oxygen saturation in Arterial blood by Pulse oximetry 2024-02-18 05:30:00 98 /min [facility] Body height 2024-02-18 02:25:00 157.5 cm [facility] Body weight 2024-02-18 02:25:00 113.399 kg [facility] BMI 2024-02-18 02:25:00 45.73 kg/m2 [facility] Procedures Procedure Date / Time Performed Performing Clinicia n Source POCT TEST 2024-07-07 09:57:00 Keyanna Heaton [facility] CT ABDOMEN PELVIS WO CONTRAST 2024-06-13 03:03:27 Singer [facility] POCT TEST 2024-06-13 02:18:00 Yoni Ocasio [facility] LIPASE 2024-06-13 02:14:00 [facility] COMP. METABOLIC PANEL ([id number]) 2024-06-13 02:14:00 Singer [facility] CBC WITH DIFF 2024-06-13 02:14:00 Kathryn Ocasio [facility] URINALYSIS 2024-06-13 02:14:00 [facility] INFLUENZA A/B RSV COVID NAAT 2024-05-04 10:42:00 Johnny Haynes [facility] XR CHEST 1 VW 2024-04-23 04:48:00 Patito العلي [facility] INFLUENZA A/B RSV COVID NAAT 2024-04-23 04:41:00 Sangeeta العلي [facility] RAPID STREP SCREEN FOR GROUP A 2024-04-20 05:04:00 Galdino Franz [facility] INFLUENZA A/B RSV COVID NAAT 2024-04-20 05:04:00 Galdino Franz [facility] COMP. METABOLIC PANEL ([id number]) 2024-04-11 08:21:00 Johnny Haynes [facility] CBC WITH DIFF 2024-04-11 08:21:00 Johnny Haynes [facility] URINALYSIS 2024-04-11 07:35:00 Johnny Haynes [facility] POCT TEST 2024-04-11 07:35:00 Johnny Corea [facility] POCT TEST 2024-02-18 04:47:00 Keyanna Heaton [facility] Encounters Start Date/Time End Date/Time Encounter Type Admission Type Attending [facility] Care Department Encounter ID Source 2024-07-07 03:54:00 2024-07-07 05:36:00 Emergency X KEYANNA HEATON WAKILI [facility] ERT [id number] [facility] 2024-07-07 03:54:00 2024-07-07 05:36:00 Emergency X KEYANNA HEATON WAKILI [facility] ERT [id number] [facility] 2024-06-12 20:50:00 2024-06-12 23:03:00 Emergency X KATHRYN OCASIO PHILLIP [facility] ERT [id number] [facility] 2024-06-12 20:50:00 2024-06-12 23:03:00 Emergency X KATHRYN OCASIO PHILLIP [facility] ERT [id number] [facility] 2024-05-09 22:47:00 2024-05-10 01:10:00 Emergency X GALDINO FRANZ SHINTA [facility] ERT [id number] [facility] 2024-05-09 22:47:00 2024-05-10 01:10:00 Emergency X GALDINO FRANZ SHINTA [facility] ERT [id number] [facility] 2024-05-04 04:18:00 2024-05-04 06:30:00 Emergency X AUFDERHERADHA , JOHNNY RAMOSAMRITAJOHNNY GARCIA [facility] ERT [id number] [facility] 2024-05-04 04:18:00 2024-05-04 06:30:00 Emergency AufderJohnny perea [facility] [id number] [id number] [id number] [id number] [facility] 2024-04-22 22:42:00 2024-04-23 00:06:00 Emergency X SANGEETA العلي [facility] ERT [id number] [facility] 2024-04-22 22:42:00 2024-04-23 00:06:00 Emergency العلي Sangeeta Janene [facility] [id number] 350.1.13.10 4.2.7.2.686 [id number] [facility] 2024-04-19 23:01:00 2024-04-20 00:34:00 Emergency X GALDINO FRANZ SHINTA [facility] ERT [id number] [facility] 2024-04-19 23:01:00 2024-04-20 00:34:00 Emergency Galdino Franz [facility] [id number] 350.1.13.10 4.2.7.2.686 [id number] [facility] 2024-04-11 00:00:00 2024-04-11 14:08:40 Case Management Anish Charles [facility] [id number] 350.1.13.10 4.2.7.2.686 [id number] [facility] 2024-04-11 01:33:00 2024-04-11 04:25:00 Emergency X AUFDERHEIDE , JOHNNY AUFDERHEIDE , JOHNNY [facility] ERT [id number] [facility] 2024-04-11 01:33:00 2024-04-11 04:25:00 Emergency Johnny Haynes [facility] [id number] 350.1.13.10 [id number] [id number] [facility] 2024-04-07 16:51:00 2024-04-07 17:37:00 Emergency AIXA ANTONIO ERICCA [facility] ERT [id number] [facility] 2024-04-07 16:51:00 2024-04-07 17:37:00 Emergency Aixa Sawyer [facility] [id number] 350.1.13.10 [id number] [id number] [facility] 2024-02-17 20:28:00 2024-02-18 00:05:00 Emergency KEYANNA CHEN WAKILI [facility] ERT [id number] [facility] 2024-02-17 20:28:00 2024-02-18 00:05:00 Emergency Keyanna Heaton [facility] [id number] 350.1.13.10 [id number] [id number] [facility] Results Test Description Test Time Test Comments Results Result Co mments Source [facility] with [id number] 03:47:03* Test Item Value Reference Range Interpretation [...] g/dL 31.6-35.1 L RDW-SD (test code = 36350-7) 43.0 fL 39.0-49.9 RDW-CV (test code = 788-0) 15.5 % 12.0-15.5 PLT (test code = 777-3) 519 166-358 H MPV (test code = 71671-0) 8.4 fL 9.5-12.9 L NRBC/100 WBC (test code = 8521157765) 0.0 0.0-10.0 NRBC x10^3 (test code = 6080369553) See_Comment [Automated messa ge] The system which generated this result transmitted reference range: 10*3/?L. The reference range was not used to interpret this result as normal/abnormal. GRAN MAT (NEUT) % (test code = 770-8) 55.3 % IMM GRAN % (test code = 8476866261) 0.50 % LYMPH % (test code = 736-9) 32.9 % MONO % (test code = 5905-5) 7.5 % EOS % (test code = 713-8) 2.7 % BASO % (test code = 706-2) 1.1 % GRAN MAT x10^3(ANC) (test code = 3817423792) 7.21 10*3/uL 1.88-7.09 H IMM GRAN x10^3 (test code = 7068101211) 0.07 10*3/uL 0.00-0.06 H LYMPH x10^3 (test code = 731-0) 4.28 10*3/uL 1.32-3.29 H MONO x10^3 (test code = 742-7) 0.97 10*3/uL 0.33-0.92 H EOS x10^3 (test code = 711-2) 0.35 10*3/uL 0.03-0.39 BASO x10^3 (test code = 704-7) 0.14 10*3/uL 0.01-0.07 H Lab Interpretation (test code = 18561-6) [facility] [id number] 03:29:40CT ABDOMEN PELVIS WO CONTRAST Indication: Epigastric [...] air orfree fluid. Skeleton: No acute osseous pathology.[facility]. Metabolic Panel ([id number]) 2024-06-13 03:03:59* Test Item Value Reference Range Interpretation Comme nts NA (test code = 6053760669) 137 mmol/L 135-145 K (test code = 9913815106) 4.2 mmol/L 3.5-5.0 CL (test code = 5264989326) 99 mmol/L 98-108 CO2 TOTAL (test code = 4307261081) 31 mmol/L 23-31 AGAP (test code = 6042916928) 7 2-16 BUN (test code = 1228089538) 13 mg/dL 7-23 GLUCOSE (test code = 8686435463) 97 mg/dL 70-110 CREATININE (test code = 2160-0) 0.71 mg/dL 0.50-1.04 TOTAL BILI (test code = 7299420469) 0.3 mg/dL 0.1-1.1 CALCIUM (test code = 6474709764) 9.2 mg/dL 8.6-10.6 T PROTEIN (test code = 8574218064) 8.1 g/dL 6.3-8.2 ALBUMIN (test code = 7877522013) 4.2 g/dL 3.5-5.0 ALK PHOS (test code = 9393361338) 104 U/L 34-122 ALTv (test code = 1742-6) 25 U/L 5-35 AST(SGOT) (test code = 2282078046) 23 U/L 13-40 eGFR (test code = 15767-2) 116.0 mL/min/1.73m2 CKD-EPI eGFR (20 21). Assuming creatinine has been stable day-to-day for at least three months, the eGFR indicates Category G1 (>= 90 mL/min/1.73 m2) [facility]* Test Item Value Reference Range Interpretation Comme nts LIPASE (test code = 6481864817) 75 U/L 0-220 Lab Interpretation (test cod e = 07619-1) [facility] [id number] 02:18:00* Test Item Value Reference Range Interpretation Comme nts POCT PREG (test code = 1605) Negative On board controls acceptable with C Line (test code = 3574) Yes POCT PREG LOT # (test code = 3575) [id number] POCT PREG TEST DATE ( test code = 3576) 09/23/2025 Lab Interpretation (test cod e = 01465-8) [facility] [id number] 05:26:55Ordering physician: SANGEETA العلي Indication: Shortness of breath Comparison: None Technical quality: Adequate Findings: Single AP view of the chest. The cardiopericardial silhouette iswithin normal limits. There is mild thickening of the green of the centralairways without focal consolidation. The visualized bony thorax is intact.[facility]. Metabolic Panel ([id number]) 2024-04-11 09:34:22* Test Item Value Reference Range Interpretation Comme nts NA (test code = 8911854738) 137 mmol/L 135-145 K (test code = 6062816770) 3.6 mmol/L 3.5-5.0 CL (test code = 7138295207) 104 mmol/L 98-108 CO2 TOTAL (test code = 6725763856) 30 mmol/L 23-31 AGAP (test code = 0457026467) 3 2-16 BUN (test code = 9079224740) 9 mg/dL 7-23 GLUCOSE (test code = 6040447669) 104 mg/dL 70-110 CREATININE (test code = 2160-0) 1.05 mg/dL 0.50-1.04 H TOTAL BILI (test code = 1874567659) 0.2 mg/dL 0.1-1.1 CALCIUM (test code = 8191554760) 9.3 mg/dL 8.6-10.6 T PROTEIN (test code = 4330903033) 7.6 g/dL 6.3-8.2 ALBUMIN (test code = 1543999414) 4.0 g/dL 3.5-5.0 ALK PHOS (test code = 5952492909) 95 U/L 34-122 ALTv (test code = 1742-6) 17 U/L 5-35 AST(SGOT) (test code = 2634125210) 17 U/L 13-40 eGFR (test code = 64690-2) 72.5 mL/min/1.73m2 CKD-EPI eGFR (2020). Assuming creatinine has been stable day-to-day for at least three months, the eGFR indicates Category G2 (60 - 89 mL/min/1.73 m2) Lab Interpretation (test code = 81712-2) Abnormal [facility] with [id number] 09:14:28* Test Item Value Reference Range Interpretation [...] g/dL 31.6-35.1 L RDW-SD (test code = 07158-2) 49.6 fL 39.0-49.9 RDW-CV (test code = 788-0) 17.5 % 12.0-15.5 H PLT (test code = 777-3) 544 166-358 H MPV (test code = 41160-5) 8.5 fL 9.5-12.9 L NRBC/100 WBC (test code = 1972028451) 0.0 0.0-10.0 NRBC x10^3 (test code = 4654436853) See_Comment [Automated message] The system which generated this result transmitted reference range: 10*3/?L. The reference range was not used to interpret this result as normal/abnormal. GRAN MAT (NEUT) % (test code = 770-8) 69.4 % IMM GRAN % (test code = 5452077938) 0.80 % LYMPH % (test code = 736-9) 21.9 % MONO % (test code = 5905-5) 5.2 % EOS % (test code = 713-8) 2.0 % BASO % (test code = 706-2) 0.7 % GRAN MAT x10^3(ANC) (test code = 3565192821) 13.08 10*3/uL 1.88-7.09 H IMM GRAN x10^3 (test code = 3813236164) 0.15 10*3/uL 0.00-0.06 H LYMPH x10^3 (test code = 731-0) 4.12 10*3/uL 1.32-3.29 H MONO x10^3 (test code = 742-7) 0.97 10*3/uL 0.33-0.92 H EOS x10^3 (test code = 711-2) 0.37 10*3/uL 0.03-0.39 BASO x10^3 (test code = 704-7) 0.14 10*3/uL 0.01-0.07 H Lab Interpretation (test code = 38625-3) [id number]* Test Item Value Reference Range Interpretation Comme nts POCT PREG (test code = 1605) Negative On board controls acceptable with C Line (test code = 3574) Yes POCT PREG LOT # (test code = 3575) [id number] POCT PREG TEST DATE ( test code = 3576) 05/03/2025 Lab Interpretation (test cod e = 83925-6) [id number] 04:47:00* Test Item Value Reference Range Interpretation Comme nts POCT PREG (test code = 1605) Negative On board controls acceptable with C Line (test code = 3574) Yes POCT PREG LOT # (test code = 3575) [id number] POCT PREG TEST DATE ( test code = 3576) 02/08/2025 Lab Interpretation (test cod e = 56754-3) Normal [facility] Notes Date/Time Note Provider Source 2024-07-07 05:35:01 [...] with steady gait, in no apparent distress, T Mayi Montano RN [facility] 2024-07-07 03:49:12 Pt arrived ambulatory to triage complaining of left foot pain radiating up leg since yesterday. Pt stated the pain is at the ball of the foot, worse with ambulation. Denies injury. 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 Nausea but no vomiting. Began friday Mayi Montano RN [facility] 2024-05-04 06:28:14 Pt given printed and verbal [...] in no apparent distress. 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 Provided d/c instructions, Rx medication use, & f/u instructions; pt. Verbalized understanding; no IV access at d/c; no apparent S&S of distress noticed at d/c; ambulates with steady gait [facility] 2024-04-22 22:32:49 Pt. Presents to ED with [...] when she inhales & exhales; denies N/V/D [facility] Fanta Aponte RN [facility] 2024-04-20 00:33:36 PT D/C home. GCS15, VS stable. Given D/C paperwork. Pt ambulatory at time of discharge. Pt educated on med usage, follow up care, s/s worsening condition, need for hydration. Pt verbalized understanding of discharge paperwork. Pt ambulated from ED in NAD with friend. Prescription x 1 sent to pharmacy. [facility] 2024-04-19 22:57:08 Pt presents to ED with c/o viral illness (cough, nasal congestion, feeling ill) Pt has hx of asthma and smokes. Pt states symptoms began yesterday. 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 ITOS Mcdaniels RN [facility] 2024-04-11 04:24:54 Awake, alert oriented X4, respiratory [...] noted upon discharge [facility] 2024-04-11 01:26:03 Pt presents to ED for abnormal vaginal bleeding and cramping. Pt was seen in ED on 04/07/24 however eloped from ED without finishing care. Pt states last cycle was on 03/29/24 and has been bleeding since then. Pt states cramping is in lower abd and comes and goes. She also feels pain in lower back at times. [facility] 2024-04-07 17:31:33 PT ELOPE PRIOR TO DISPO. LAST SEEN IN STABLE CONDITION, AOx4, NO ATAXIA NOTED. PT DID NOT NOTIFY STAFF OR SIGN AMA PAPERS. [facility] Norma Jovel RN [facility] 2024-04-07 17:30:00 Attempted to call pt from [employer] [facility] with no response. [facility] 2024-04-07 17:12:02 Attempted to call from [facility] with no response. [facility] 2024-04-07 17:01:03 Called from [employer], no response. [facility] Radha Abernathy RN [facility] 2024-04-07 16:51:35 Pt given urine cup and placed in the lobby, pt advice to notify nurse with any other concerns or if symptoms worsen. [facility] 2024-04-07 16:47:21 Patient arrived ambulatory c/o heavy vaginally bleeding for the past 5 days with severe abdominal cramping. Patient denies any pregancy, any trauma to area. [facility] 2024-02-18 00:03:33 Pt discharged with diagnosis of strain of L shoulder. Printed and verbal instructions reviewed with and given to pt. Prescriptions given x 3. Pt verbalized understanding of teaching, medications, and recommended follow-up. Denies questions or concerns at this time. Pt ambulatory at discharge. Appears in no apparent distress. No ataxia noted. ITOS Jovel RN [facility] 2024-02-17 20:28:15 Pt given urine cup and placed in the lobby, pt advice to notify nurse with any other concerns or if symptoms worsen. [facility] 2024-02-17 20:23:35 Pt states that she was pulling Dolley with boxes on it and felt a pop in the left shoulder. Pt states she is also having numbness in the left arm. [facility] 2024-02-17 20:14:00 [facility] Emergency Department Note Patient Name: Boris Lorenzo Date of : 1990 33 year old female Treatment Room: [place] [address] Primary Care Physician: No primary care provider on file. 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
[2024-12-05] MEDS ORDERED: NA CHLORIDE 0.9% 500 ML ONE (13:27)
[2024-12-05] MEDS ORDERED: CLINDAMYCIN 900MG/D5W 900 MG/50 ML IVPB IV ONE (13:27)
[2024-12-05] MEDS ORDERED: NA CHLORIDE 0.9% 100 ML ONE (13:28)
[2024-12-05] MEDS ORDERED: CEFAZOLIN SODIUM 2 GM/VIAL ONE (13:28)
[2024-12-05 13:32] LABS: Absolute Lymphocytes (CBC) 2.9 K/uL (0.7-4.9); Hematocrit 32.9 % (36.0-45.0); Hemoglobin 9.9 g/dL (12.0-15.0); MCH 20.3 pg (27.0-35.0); MCHC 30.2 g/dL (32.0-36.0); MCV 67.3 fL (80-100); MPV 6.4 fL (7.6-11.3); Nucleated RBC Absolute Count 0.0 (0-0); Nucleated Red Blood Cells % 0.0 % (0-0); RBC Red Blood Cell Count 4.88 M/uL (3.86-4.86); White Blood Count 12.10 thou/uL (4.3-10.9)
[2024-12-05 13:48] LABS: ALT/SGPT 27.0 U/L (13-56); AST/SGOT 16.0 U/L (15-37); Albumin 2.9 g/dL (3.4-5.0); Albumin/Globulin Ratio 0.6 (1.1-1.8); Alkaline Phosphatase 104.0 U/L (45-117); Anion Gap 7.3 mEq/L (5.0-15.0); BUN Blood Urea Nitrogen 7.0 mg/dL (7-18); Globulin 4.9 g/dL (2.3-3.5); Glucose Level 104.0 mg/dL (74-106); Potassium 4.3 mEq/L (3.5-5.1)
--- NOTE | 2024-12-05 13:50 | RAD REPORT ---
EXAMINATION: Facial Bones W/ Mpr CLINICAL INDICATION: Female, 34 years old. FACIAL PAIN TECHNIQUE: Axial images were obtained through the facial bones and orbits without intravenous contras t. Sagittal and coronal reconstructions were created from the data. One or more of the following dose reduction techniques were used: Automated exposure control, adjustment of the mA and/or kV accor ding to patient size, and/or iterative reconstruction. Unless otherwise specified, incidental findings do not require dedicated imaging follow-up. [id number]. COMPARISON: No prior exams FINDINGS: SOFT TISSUE: No significant abnormalities. BONES: No evidence of fracture, dislocation, or aggressive osseous lesions. No lesion of the visuali zed skull base or calvarium. ORBITS: The globes are intact. No intraorbital hemorrhage or mass. SINUSES: Mucous retention cyst in the right and left maxillary sinus. BRAIN: No acute abnormalities in the visualized intracranial structures. IMPRESSION: No acute or significant abnormalities.
--- NOTE | 2024-12-05 13:51 | EDPHYS ---
Physician Documentation [facility] Name: Jan Lorenzo Age: 34 yrs Sex: Female : 1990 Arrival Date: 12/05/2024 Time: 12:15 Bed 19 Private MD: ED Physician Nuno Escobedo HPI: 12/05 13:24 This 34 yrs old Female presents to ER via Ambulatory with complaints of bebe Facial Swelling. 13:24 The patient or guardian reports swelling, tenderness. The complaints affect the nose bebe and left cheek. Context of injury: The problem was sustained at an unknown location, resulted from. Onset: The symptoms/episode began/occurred 3 day(s) ago. Associated signs and symptoms: The patient has no apparent associated signs or symptoms. The patient presents with pain, DENTAL DECAY. Severity of symptoms: At their worst the symptoms were mild, moderate, in the emergency department the symptoms are unchanged. 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 - Infectious Disease History:: Denies. - Family history:: not pertinent. - Social history:: Smoking status: Patient denies any tobacco usage or history of. ROS: 13:24 Constitutional: Negative for fever, chills, and weight loss, Eyes: Negative for injury, bebe pain, redness, and discharge, Neck: Negative for injury, pain, and swelling, Cardiovascular: Negative for chest pain, palpitations, and edema, Respiratory: Negative for shortness of breath, cough, wheezing, and pleuritic chest pain, Abdomen/GI: Negative for abdominal pain, nausea, vomiting, diarrhea, and constipation, Back: Negative for injury and pain, : Negative for injury, bleeding, discharge, and swelling, MS/Extremity: Negative for injury and deformity, Skin: Negative for injury, rash, and discoloration, Neuro: Negative for headache, weakness, numbness, tingling, and seizure, Psych: Negative for depression, anxiety, suicide ideation, homicidal ideation, and hallucinations, Allergy/Immunology: Negative for hives, rash, and allergies, Endocrine: Negative for neck swelling, polydipsia, polyuria, polyphagia, and marked weight changes, Hematologic/Lymphatic: Negative for swollen nodes, abnormal bleeding, and unusual bruising, 13:24 ENT: Positive for dental pain, Negative for foreign body sensation, Gum pain pulling at ears, tinnitus, rhinorrhea, sinus congestion, Exam: 13:24 Constitutional: This is a well developed, well nourished patient who is awake, alert, bebe and in no acute distress. Eyes: Pupils equal round and reactive to light, extra-ocular motions intact. Lids and lashes normal. Conjunctiva and sclera are non-icteric and not injected. Cornea within normal limits. Periorbital areas with no swelling, redness, or edema. ENT: Nares patent. No nasal discharge, no septal abnormalities noted. Tympanic membranes are normal and external auditory canals are clear. Oropharynx with no redness, swelling, or masses, exudates, or evidence of obstruction, uvula midline. Mucous membranes moist. Neck: Trachea midline, no thyromegaly or masses palpated, and no cervical lymphadenopathy. Supple, full range of motion without nuchal rigidity, or vertebral point tenderness. No Meningismus. Chest/axilla: Normal chest wall appearance and motion. Nontender with no deformity. No lesions are appreciated. Cardiovascular: Regular rate and rhythm with a normal S1 and S2. No gallops, murmurs, or rubs. Normal PMI, no JVD. No pulse deficits. Respiratory: Lungs have equal breath sounds bilaterally, clear to auscultation and percussion. No rales, rhonchi or wheezes noted. No increased work of breathing, no retractions or nasal flaring. Abdomen/GI: Soft, non-tender, with normal bowel sounds. No distension or tympany. No guarding or rebound. No evidence of tenderness throughout. Back: No spinal tenderness. No costovertebral tenderness. Full range of motion. Skin: Warm, dry with normal turgor. Normal color with no rashes, no lesions, and no evidence of cellulitis. MS/ Extremity: Pulses equal, no cyanosis. Neurovascular intact. Full, normal range of motion., bilateral aka Neuro: Awake and alert, GCS 15, oriented to person, place, time, and situation. Cranial nerves II-XII grossly intact. Motor strength 5/5 in all extremities. Sensory grossly intact. Cerebellar exam normal. Normal gait. Psych: Awake, alert, with orientation to person, place and time. Behavior, mood, and affect are within normal limits. 13:24 Head/face: Noted is swelling, tenderness, that is mild, of the left cheek, Vital Signs: 12:39 BP 145 / 98; Pulse 97; Resp 16; Temp 98.3; Pulse Ox 100% on R/A; Weight 113.4 kg; iw Height 5 ft. 2 in. ; 13:00 BP 148 / 85; Pulse 79; Resp 16; Pulse Ox 99% ; me1 14:00 BP 141 / 83; Pulse 81; Resp 16; Pulse Ox 99% ; me1 14:45 BP 149 / 98; Pulse 79; Resp 16; Temp 98.6; Pulse Ox 94% ; me1 12:39 Body Mass Index 45.73 (113.40 kg, 157.48 cm) iw [place] Coma Score: 13:28 Eye Response: spontaneous(4). Motor Response: obeys commands(6). Verbal Response: bebe oriented(5). Total: 15. MDM: 12:31 Medical Screening Exam initiated bebe 13:28 Differential diagnosis: Contusion of Hematoma on face, dental caries, gingivitis, bebe dental abscess, gingivostomatitis. Data reviewed: vital signs, nurses notes, lab test result(s), radiologic studies, CT scan. Consideration of Admission/Observation Escalation of care including admission/observation considered. I considered the following discharge prescriptions or medication management in the emergency department Medications were administered in the Emergency Department. See MAR. Independent interpretation of the following test(s) in the Emergency Department CT Scan: My interpretation is CT FACIAL WO. Test considered but Not performed: X-ray: NO FACIAL X RAY. Historians other than the Patient: Spouse/Significant Other: SIG OTHER. Care significantly affected by the following chronic conditions: Obesity, ASTHMA. 12/05 13:09 Order name: CBC with Diff; Complete Time: 14:24 bebe 12/05 13:09 Order name: CMP; Complete Time: 13:50 bebe 12/05 13:36 Order name: CBC Smear Scan; Complete Time: 14:24 EDMS 12/05 13:09 Order name: CT Facial Bones W/O Con; Complete Time: 13:51 bebe Administered Medications: 13:44 Drug: ceFAZolin IVPB 2 grams IVPB once over 30 mins; (mix in 100 mL NS) Route: IVPB; me1 Infused Over: 30 mins; Site: right antecubital; 14:18 Follow up: Response: No adverse reaction; IV Status: Completed infusion me1 13:44 Drug: NS 0.9% IV 500 ml 500 ml IV at 1 bolus once; to be given as a bolus over 30 me1 minutes Volume: 500 ml; Route: IV; Rate: 1 bolus; Site: right antecubital; 14:54 Follow up: Response: No adverse reaction; IV Status: Completed infusion; IV Intake: me1 500ml 14:18 Drug: Clindamycin IVPB 900 mg IVPB once over 30 mins; (mix in 50 mL) Route: IVPB; me1 Infused Over: 30 mins; Site: right antecubital; 14:54 Follow up: Response: No adverse reaction; IV Status: Completed infusion me1 Disposition Summary: 12/05/24 13:51 Discharge Ordered Notes: Location: Home [facility] Problem: new [facility] Symptoms: have improved bebe Condition: Stable bebe Diagnosis - Dental caries, unspecified bebe - Cellulitis and acute lymphangitis of face bebe - Elevated white blood cell count bebe - Anemia, unspecified bebe Followup: bebe - With: Private Physician - When: 2 - 3 days - Reason: Recheck today's complaints, Continuance of care, Re-evaluation by your physician Followup: bebe - With: Mayito Zabala DDS - When: 2 - 3 days - Reason: Recheck today's complaints, Re-evaluation by your physician Discharge Instructions: - Discharge Summary Sheet bebe - Cellulitis, Adult bebe - Dental Caries, Adult bebe - Dental Pain bebe - Cellulitis, Adult, [id number] bebe - Dental Pain, [id number] bebe - Diet and Dental Disease bebe - Dental Caries, Adult, [id number] [facility] Forms: - Medication Reconciliation Form [facility] - Antibiotic Education [facility] - Prescription Opioid Use [facility] - Patient Portal Instructions [facility] - Leadership Thank You Letter [facility] Prescriptions: - Cephalexin 500 mg Oral Capsule - take 1 capsule ORAL route every 6 hours for 10 days; 40 capsule; Refills: 0, [facility] Product Selection Permitted - Clindamycin HCl 300 mg Oral Capsule - take 1 capsule ORAL route every 6 hours for 10 days; 40 capsule; Refills: 0, [facility] Product Selection Permitted - Ibuprofen 600 mg Oral Tablet - take 1 tablet ORAL route every 6 hours As needed take with food; 30 tablet; [facility] Refills: 0, Product Selection Permitted - Pepcid 20 mg Oral tablet - take 1 tablet ORAL route every 12 hours for 30 days; 60 tablet; Refills: 0, [facility] Product Selection Permitted Signatures: Dispatcher [employer] Nuno Barraza MD MD cha Williams, Irene, RN RN iw Teetee Raymundo RN RN me1
--- NOTE | 2024-12-05 13:51 | ER ---
Nurse's Notes [facility] [place] Name: Jan Lorenzo Age: 34 yrs Sex: Female : 1990 Arrival Date: 12/05/2024 Time: 12:15 Bed 19 Private MD: Diagnosis: Dental caries, unspecified;Cellulitis and acute lymphangitis of face;Elevated white blood cell count;Anemia, unspecified Presentation: 12/05 12:39 Chief complaint: Patient states: swelling in face since Friday night, it's under both iw eyes but more on left side. Coronavirus screen: At this time, the client does not indicate any symptoms associated with coronavirus-19. Ebola Screen: No symptoms or risks identified at this time. Initial Sepsis Screen: Does the patient meet any 2 criteria? No. Patient's initial sepsis screen is negative. Does the patient have a suspected source of infection? No. Patient's initial sepsis screen is negative. Risk Assessment: Do you want to hurt yourself or someone else? Patient reports no desire to harm self or others. Onset of symptoms was December 03, 2024. 12:39 Method Of Arrival: Ambulatory iw 12:39 Acuity: SALLY 4 iw 13:21 Acuity: SALLY 3 iw [employer]: 14:59 LMP 12/03/2024, unknown me1 Historical: - Allergies: 12:41 Iodine; iw 12:41 SHELLFISH; iw 12:41 adhesive; iw 12:41 IV contrast; iw - PMHx: 12:41 Asthma; iw - PSHx: 12:41 right knee; iw - Immunization history:: Adult Immunizations up to date. - Infectious Disease History:: Denies. - Family history:: not pertinent. - Social history:: Smoking status: Patient denies any tobacco usage or history of. Screenin:37 [facility] ED Fall Risk Assessment (Adult) History of falling in the last 3 months, me1 including since admission No falls in past 3 months (0 pts) Confusion or Disorientation No (0 pts) Intoxicated or Sedated No (0 pts) Impaired Gait No (0 pts) Mobility Assist Device Used No (0 pt) Altered Elimination No (0 pt) Score/Fall Risk Level 0 - 2 = Low Risk Maintained a safe environment, Provided non-skid footwear, Hourly rounding (assess needs \T\ fall precautionary measures) done. Abuse screen: Denies threats or abuse. Nutritional screening: No deficits noted. Tuberculosis screening: No symptoms or risk factors identified. Assessment: 13:37 General: Appears in no apparent distress. well groomed, well developed, Behavior is me1 calm, cooperative, appropriate for age, Reports swelling in face since Dennis night, it's under both eyes but more on left side. Pain: Denies pain. Neuro: Level of Consciousness is awake, alert, obeys commands, Oriented to person, place, time, situation, Appropriate for age. Cardiovascular: Patient's skin is warm and dry. Respiratory: Airway is patent Respiratory effort is even, unlabored, Respiratory pattern is regular, symmetrical. GI: No signs and/or symptoms were reported involving the gastrointestinal system. : No signs and/or symptoms were reported regarding the genitourinary system. EENT: No signs and/or symptoms were reported regarding the EENT system. Derm: Skin is intact, is healthy with good turgor, Skin is normal. Musculoskeletal: Circulation, motion, and sensation intact. Range of motion: intact in all extremities, Swelling present in left cheek and nose. 13:55 Reassessment: Discharge delayed for IV antibiotics to infuse. me1 Vital Signs: 12:39 BP 145 / 98; Pulse 97; Resp 16; Temp 98.3; Pulse Ox 100% on R/A; Weight 113.4 kg; iw Height 5 ft. 2 in. ; 13:00 BP 148 / 85; Pulse 79; Resp 16; Pulse Ox 99% ; me1 14:00 BP 141 / 83; Pulse 81; Resp 16; Pulse Ox 99% ; me1 14:45 BP 149 / 98; Pulse 79; Resp 16; Temp 98.6; Pulse Ox 94% ; me1 12:39 Body Mass Index 45.73 (113.40 kg, 157.48 cm) iw Trell Coma Score: 13:28 Eye Response: spontaneous(4). Motor Response: obeys commands(6). Verbal Response: bebe oriented(5). Total: 15. ED Course: 12:18 Patient arrived in ED. sj2 12:31 Nuno Escobedo MD is Attending Physician. bebe 12:41 Triage completed. iw 12:41 Arm band placed on. iw 12:53 Eddleman, Teetee, RN is Primary Nurse. me1 13:25 CMP Sent. me1 13:25 CBC with Diff Sent. me1 13:25 Initial lab(s) drawn, by me, sent to lab. Inserted saline lock: 22 gauge in right me1 antecubital area, using aseptic technique. 13:37 Patient has correct armband on for positive identification. Bed in low position. Call me1 light in reach. Side rails up X2. Provided Education on: POC. Verbalized understanding.. Client placed on continuous cardiac and pulse oximetry monitoring. NIBP monitoring applied. Pulse ox on. NIBP on. 13:37 No provider procedures requiring assistance completed. me1 13:40 CT Facial Bones W/O Con In Process Unspecified. EDMS 13:51 Mayito Zabala DDS is Referral Physician. bebe 14:59 IV discontinued, intact, bleeding controlled, No redness/swelling at site. Pressure me1 dressing applied. Administered Medications: 13:44 Drug: ceFAZolin IVPB 2 grams IVPB once over 30 mins; (mix in 100 mL NS) Route: IVPB; me1 Infused Over: 30 mins; Site: right antecubital; 14:18 Follow up: Response: No adverse reaction; IV Status: Completed infusion me1 13:44 Drug: NS 0.9% IV 500 ml 500 ml IV at 1 bolus once; to be given as a bolus over 30 me1 minutes Volume: 500 ml; Route: IV; Rate: 1 bolus; Site: right antecubital; 14:54 Follow up: Response: No adverse reaction; IV Status: Completed infusion; IV Intake: me1 500ml 14:18 Drug: Clindamycin IVPB 900 mg IVPB once over 30 mins; (mix in 50 mL) Route: IVPB; me1 Infused Over: 30 mins; Site: right antecubital; 14:54 Follow up: Response: No adverse reaction; IV Status: Completed infusion me1 Medication: 13:37 VIS not applicable for this client. me1 Intake: 14:54 IV: 500ml; Total: 500ml. me1 Outcome: 13:51 Discharge ordered by . bebe 14:59 Discharged to home ambulatory, with significant other, me1 14:59 Condition: stable 14:59 Discharge instructions given to patient, significant other, Instructed on discharge instructions, follow up and referral plans. medication usage, Demonstrated understanding of instructions, follow-up care, medications, Prescriptions given X 4, 15:00 Patient left the ED. me1 Signatures: Dispatcher [employer] Nuno Barraza MD MD cha Williams, Irene, RN RN iw Teetee Raymundo RN RN me1 Nataliia Cano sj2 Corrections: (The following items were deleted from the chart) 13:37 12:39 Chief complaint: Patient states: swelling in face since Friday night, it's under me1 both eyes but more on left side, iw
[2024-12-05 14:07] LABS: Anisocytosis 1+; Blood Morphology Comment NOTED (NOT SEEN); Microcytosis SLIGHT; Stomatocytes 1+; White Blood Cell Scan OK (OK)
[2024-12-05 15:21] VITALS: BP 149/98; TEMP 98.6; O2SAT 94
== END 2024-12-05 15:00 | disposition home or self-care (01) ==
LOC: ER 12:15
DX: K02.9 Dental caries, unspecified (principal); L03.211 Cellulitis of face; L03.212 Acute lymphangitis of face; D64.9 Anemia, unspecified; D72.829 Elevated white blood cell count, unspecified
CPT/HCPCS: 96365; 96367; 85025; 36415; 80053; 70486; 76377; 99284; J7040